=== PATIENT | female | born 1945 | race Caucasian/White ===

== ENCOUNTER → 2017-11-06 | Outpatient (CLI) | payer MEDICARE | END | disposition home or self-care (01) | LOC: KCIC CT 14:21 | DX: S00.12XD Contusion of left eyelid and periocular area, subsequent encounter (principal); E78.00 Pure hypercholesterolemia, unspecified; G93.89 Other specified disorders of brain; Z91.81 History of falling; X58.XXXD Exposure to other specified factors, subsequent encounter | CPT/HCPCS: 70450 ==

== ENCOUNTER → 2018-03-12 | Outpatient (CLI) | payer MEDICARE, OTHER ==
--- NOTE | 2018-03-12 15:10 | KCIC ---
Examination: CHEST PA LATERAL History: Cough for 2 days Comparison/Correlation: 12/19/2010 two-view chest x-ray report Findings: PA and lateral views of the chest were obtained. Rods and pedicle screws are present bilaterally involving the cervical spine. Heart size and pulmonary vasculature are normal. Pulmonary hyperinflation is present. No infiltrate or effusion. Dextroconvex scoliosis of the thoracal lumbar spine is severe. Subchondral sclerosis involves the right femoral head. Impression: COPD. No infiltrate. Electronically signed by: Simeon Rush MD (03/12/2018 3:06 PM) [id number]
== END | disposition home or self-care (01) ==
LOC: KCIC 14:14
PROVIDERS: ATTEND Nurse Practitioner Family
DX: J44.9 Chronic obstructive pulmonary disease, unspecified (principal); M41.85 Other forms of scoliosis, thoracolumbar region
CPT/HCPCS: 71046

== ENCOUNTER 2018-04-22 14:35 | Emergency (ER) | payer MEDICARE, OTHER ==
[~2018-04-22] VITALS: Ht 157.5 cm; Wt 47.6 kg
--- NOTE | 2018-04-22 15:01 | PHYS DOC ---
Adult General Chief Complaint Chief Complaint: OTHER COMPLAINTS HPI HPI Patient is a 73 year old female who presents with rectal prolapse. The patient was seen earlier at her physician's office and was diagnosed with a rectal prolapse. According to the patient's daughter who is present at the bedside, the physicians attempted to reduce the rectal prolapse without success. She was subsequently brought to the emergency department. The daughter does give a history of chronic constipation. She states the patient pushes very hard every time she has a bowel movement. She has been treated with multiple bowel softening agents and laxatives but frequently has subsequent explosive diarrhea. The daughter expresses some frustration that the patient has been unable to get on a healthy normal bowel regimen. She has, however, never had prior history of rectal prolapse in the past. Review of Systems Review of Systems Constitutional: Denies fever or chills Eyes: Denies change in visual acuity HENT: Denies nasal congestion Respiratory: Denies cough, + PMH of COPD Cardiovascular: No additional information not addressed in HPI GI: Denies abdominal pain, nausea, vomiting : Denies dysuria Musculoskeletal: Denies back pain Integument: Denies rash or skin lesions Neurologic: Denies headache, Endocrine: Denies polyuria All other systems were reviewed and found to be within normal limits, except as documented in this note. Current Medications Current Medications Current Medications Medications (Trade) Dose Ordered Sig/Rolanda Start Time Stop Time Status Last Admin Dose Admin Fentanyl Citrate (Fentanyl 2ml Vial) 25 mcg 1X ONCE 04/22/18 15:30 04/22/18 15:31 DC 04/22/18 15:27 25 MCG Olanzapine (ZyPREXA ZYDIS) 5 mg 1X ONCE 04/22/18 15:15 04/22/18 15:16 DC 04/22/18 15:14 5 MG Sodium Chloride 500 ml @ 500 mls/hr 1X ONCE 04/22/18 16:00 04/22/18 16:59 DC 04/22/18 16:25 500 MLS/HR Allergies Allergies Allergies Coded Allergies Type Severity Reaction Last Updated Verified Penicillins Allergy Intermediate 04/22/18 Yes codeine Allergy Intermediate 04/22/18 Yes Physical Exam Physical Exam Constitutional: Well developed, well nourished, no acute distress, non-toxic appearance, very anxious with some confusion that is baseline. HENT: Normocephalic, atraumatic, bilateral external ears normal, oropharynx moist Eyes: PERRLA, EOMI Neck: Normal range of motion, no tenderness, supple Cardiovascular:Heart rate regular rhythm Lungs & Thorax: Bilateral breath sounds for this patient. few scattered wheezes but good air movement Abdomen: Bowel sounds normal, soft, no tenderness, no masses, no pulsatile masses. Skin: Warm, dry, no erythema Back: No tenderness Extremities: No tenderness, no cyanosis, no clubbing, ROM intact, no edema Neurologic: Alert and oriented X 3 Psychologic: Affect normal Current Patient Data Vital Signs Vital Signs Date Time Temp Pulse Resp B/P (MAP) Pulse Ox O2 Delivery O2 Flow Rate FiO2 04/22/18 15:27 22 95 Room Air 04/22/18 14:55 99.1 72 184/73 (110) 99.1 Lab Values Laboratory Tests Test 04/22/18 15:20 04/22/18 15:38 White Blood Count 8.4 x10^3/uL (4.0-11.0) Red Blood Count 2.97 x10^6/uL (3.50-5.40) L Hemoglobin 9.7 g/dL (12.0-15.5) L Hematocrit 28.3 % (36.0-47.0) L Mean Corpuscular Volume 95 fL (79-100) Mean Corpuscular Hemoglobin 33 pg (25-35) Mean Corpuscular Hemoglobin Concent 34 g/dL (31-37) Red Cell Distribution Width 12.8 % (11.5-14.5) Platelet Count 291 x10^3/uL (140-400) Neutrophils (%) (Auto) 61 % (31-73) Lymphocytes (%) (Auto) 24 % (24-48) Monocytes (%) (Auto) 9 % (0-9) Eosinophils (%) (Auto) 6 % (0-3) H Basophils (%) (Auto) 1 % (0-3) Neutrophils # (Auto) 5.1 x10^3uL (1.8-7.7) Lymphocytes # (Auto) 2.0 x10^3/uL (1.0-4.8) Monocytes # (Auto) 0.8 x10^3/uL (0.0-1.1) Eosinophils # (Auto) 0.5 x10^3/uL (0.0-0.7) Basophils # (Auto) 0.1 x10^3/uL (0.0-0.2) Sodium Level 137 mmol/L (136-145) Potassium Level 4.8 mmol/L (3.5-5.1) Chloride Level 100 mmol/L (98-107) Carbon Dioxide Level 30 mmol/L (21-32) Anion Gap 7 (6-14) Blood Urea Nitrogen 18 mg/dL (7-20) Creatinine 1.2 mg/dL (0.6-1.0) H Estimated GFR (Cockcroft-Gault) 43.8 Glucose Level 73 mg/dL (70-99) Calcium Level 8.8 mg/dL (8.5-10.1) Urine Collection Type U cath Urine Color Yellow Urine Clarity Clear Urine pH 5.5 Urine Specific [place] 1.020 Urine Protein Negative mg/dL (NEG-TRACE) Urine Glucose (UA) Negative mg/dL (NEG) Urine Ketones (Stick) Negative mg/dL (NEG) Urine Blood Negative (NEG) Urine Nitrite Negative (NEG) Urine Bilirubin Negative (NEG) Urine Urobilinogen Dipstick 0.2 mg/dL (0.2 mg/dL) Urine Leukocyte Esterase Negative (NEG) Urine RBC 0 /HPF (0-2) Urine WBC Occ /HPF (0-4) Urine Renal Epithelial Cells Occ /LPF Urine Bacteria 0 /HPF (0-FEW) Urine Mucus Mod /LPF Laboratory Tests 04/22/18 15:20 Laboratory Tests 04/22/18 15:20 EKG EKG [] Radiology/Procedures Radiology/Procedures FINDINGS: Lack of intravenous contrast limits evaluation of solid organs, vasculature, and lymph nodes. Streak artifact from the patient's arms also limits evaluation. Lower chest: Linear opacities are seen in the lung bases likely subsegmental atelectasis/scarring. No lobar consolidation. No pleural effusion. Abdomen and Pelvis: No definite liver lesion is seen. Spleen is unremarkable. Gallbladder is unremarkable. No biliary ductal dilatation. Pancreas is grossly unremarkable for noncontrast exam. Adrenal glands are normal. No focal renal lesion. No hydronephrosis. No renal tract calculus. Large right colonic stool content is seen throughout the colon. This is most prominent in the ascending colon. The appendix is not seen. No small or large bowel dilatation to suggest bowel obstruction. Fluid-filled loops of small bowel are seen in the pelvis. The bladder is moderately distended. No abdominal or pelvic ascites. Within the constraints of this noncontrast exam no definite abdominal or pelvic lymphadenopathy is seen. Atherosclerotic calcifications of aorta are seen. Bones: Degenerative changes of the spine are seen most prominent in the lower lumbar spine. No definite aggressive osseous lesion is identified. Anterolisthesis of L5 on S1 is noted. IMPRESSION: 1. No evidence of bowel obstruction. 2. Large volume colonic stool content most prominent in the ascending colon. 3. No abdominal or pelvic ascites. Course & Med Decision Making Course & Med Decision Making Pertinent Labs and Imaging studies reviewed. (See chart for details) Patient is evaluated immediately on arrival to her room. Rectal exam is immediately performed. There is no rectal prolapse currently. Digital rectal exam is performed with normal anatomy at least to palpation. The patient then stated she needed to have a large bowel movement. She was placed on a bedpan and immediately prolapse her rectum again. 15:25: I discussed this patient with the on-call general surgeon, Dr. Powers. Today is the first time the patient has a very had rectal prolapse. There is no acute surgical intervention indicated in this setting. Possible surgical options in the future could include diverting colostomy but the patient is a poor candidate for surgery. Goal of care is to relieve her constipation symptoms as much as possible although some of her symptoms are secondary to her dementia. So the goal becomes to improve her dementia symptoms. In the ER, the patient is given Zydis 5 mg ODT. IV is placed and 25 mcg of fentanyl are ordered. Will reduce prolapse after pain meds given. Basic labs. Will also check straight cath UA to ensure she is not bearing down from a urinary cause. 17:40: Urinalysis was not infected. CT of the abdomen pelvis did not reveal acute findings. During the ED course, the patient had additional episodes where her rectum prolapsed but it was easy to reduce. The tissue was beefy red and did not appear ischemic or necrotic. I the end of the ER course, the patient's daughter had been shown how to reduce the prolapse. There was no acute indication for admission. Specific constipation instructions were drawn up. She was advised to give high-dose Colace twice daily. Following that if there is no relief at 48 hours, she will add senna. Following that if there is no relief she will add MiraLAX. I also described to the patient that there are opioid- induced constipation medications now which her primary care physician could prescribe. All her questions were answered prior to discharge. The patient's daughter was agreeable to the plan of care. She was advised to return immediately for any signs of ischemia or necrotic tissue. These were described. Follow-up with primary care physician and also with colorectal surgery at to establish care. Dragon Disclaimer Dragon Disclaimer This electronic medical record was generated, in whole or in part, using a voice recognition dictation system. Departure Departure Referrals: MAGDA ARZOLA (PCP) Scripts Polyethylene Glycol 3350 (MIRALAX) 119 Gm Powder 17 GM PO DAILY, #527 GM Prov: MARIELOS FERMIN DO 04/22/18 Sennosides (SENNA) 8.6 Mg Tablet 8.6 MG PO BID for constipation, #60 TAB 1 Refill Prov: MARIELOS FERMIN DO 04/22/18 Docusate Sodium (DOCUSATE SODIUM) 250 Mg Capsule 250 MG PO BID, #60 CAP 1 Refill Prov: MARIELOS FERMIN DO 04/22/18 Olanzapine (ZYPREXA ZYDIS) 5 Mg Tab.rapdis 5 MG PO UD, #30 TAB Give 1 or 2 dissolving tabs daily as needed for agitation. Don't exceed more than 4 tablets total per 24 hours. Prov: MARIELOS FERMIN DO 04/22/18 MARIELOS FERMIN DO Apr 22, 2018 15:01
[2018-04-22 15:30] LABS: BASO # 0.1 x10^3/uL (0.0-0.2); BASO % 1 % (0-3); EOS # 0.5 x10^3/uL (0.0-0.7); EOS % 6 % (0-3); HEMATOCRIT 28.3 % (36.0-47.0); HEMOGLOBIN 9.7 g/dL (12.0-15.5); LYMPH % 24 % (24-48); MEAN CORPUSCULAR HEMOGLOBIN 33 pg (25-35); MEAN CORPUSCULAR HGB CONC 34 g/dL (31-37); MEAN CORPUSCULAR VOLUME 95 fL (79-100); MONO # 0.8 x10^3/uL (0.0-1.1); MONO % 9 % (0-9); NEUT # 5.1 x10^3uL (1.8-7.7); NEUT % 61 % (31-73); PLATELET COUNT 291 x10^3/uL (140-400); RED BLOOD COUNT 2.97 x10^6/uL (3.50-5.40); RED CELL DISTRIBUTION WIDTH 12.8 % (11.5-14.5); WHITE BLOOD COUNT 8.4 x10^3/uL (4.0-11.0)
[2018-04-22] MEDS ORDERED: fentaNYL PF VIAL 100 MCG/2 ML VIAL IV ONE (15:30)
[2018-04-22 15:39] LABS: CALCIUM 8.8 mg/dL (8.5-10.1); CREATININE 1.2 mg/dL (0.6-1.0); GFR 43.8; POTASSIUM 4.8 mmol/L (3.5-5.1)
[2018-04-22] MEDS ORDERED: IV NORMAL SALINE 500ML BAG 500 ML IV ONE (16:00)
[2018-04-22 16:39] LABS: BILIRUBIN,URINE NEGATIVE (NEG); CLARITY,URINE CLEAR; COLOR,URINE YELLOW; NITRITE,URINE NEGATIVE (NEG); PH,URINE 5.5; PROTEIN,URINE NEGATIVE (NEG-TRACE); UROBILINOGEN,URINE 0.2 mg/dL (0.2 mg/dL)
--- NOTE | 2018-04-22 16:46 | RAD ---
EXAM: CT Abdomen and Pelvis without IV contrast CLINICAL HISTORY: lower abd pain rectal prolapse s/p reduction COMPARISON: none TECHNIQUE: Helical CT of the abdomen and pelvis without intravenous contrast. Axial, coronal and sagittal reformatted images were generated. PQRS compliance statement - One or more of the following individualized dose reduction techniques were utilized for this study: 1. Automated exposure control 2. Adjustment of the mA and/or kV according to patient size 3. Use of iterative reconstruction technique FINDINGS: Lack of intravenous contrast limits evaluation of solid organs, vasculature, and lymph nodes. Streak artifact from the patient's arms also limits evaluation. Lower chest: Linear opacities are seen in the lung bases likely subsegmental atelectasis/scarring. No lobar consolidation. No pleural effusion. Abdomen and Pelvis: No definite liver lesion is seen. Spleen is unremarkable. Gallbladder is unremarkable. No biliary ductal dilatation. Pancreas is grossly unremarkable for noncontrast exam. Adrenal glands are normal. No focal renal lesion. No hydronephrosis. No renal tract calculus. Large right colonic stool content is seen throughout the colon. This is most prominent in the ascending colon. The appendix is not seen. No small or large bowel dilatation to suggest bowel obstruction. Fluid-filled loops of small bowel are seen in the pelvis. The bladder is moderately distended. No abdominal or pelvic ascites. Within the constraints of this noncontrast exam no definite abdominal or pelvic lymphadenopathy is seen. Atherosclerotic calcifications of aorta are seen. Bones: Degenerative changes of the spine are seen most prominent in the lower lumbar spine. No definite aggressive osseous lesion is identified. Anterolisthesis of L5 on S1 is noted. IMPRESSION: 1. No evidence of bowel obstruction. 2. Large volume colonic stool content most prominent in the ascending colon. 3. No abdominal or pelvic ascites. Electronically signed by: Luis E Pearce MD (04/22/2018 4:43 PM) [facility]
[2018-04-22 16:48] LABS: BACTERIA,URINE 0 /HPF (0-FEW); RBC,URINE 0 /HPF (0-2); WBC,URINE OCC /HPF (0-4)
[2018-04-22 16:50] VITALS: BP 130/62
[2018-04-22] MEDS ORDERED: OLAN5TAB5 PO (17:21)
[2018-04-22] MEDS ORDERED: SENN-80 PO (17:21)
[2018-04-22] MEDS ORDERED: POLY119P4 PO (17:21)
[2018-04-22] MEDS ORDERED: DOCU250C8 PO (17:21)
== END 2018-04-22 17:45 | disposition home or self-care (01) ==
LOC: ER 14:35
DX: K62.3 Rectal prolapse (principal); R19.7 Diarrhea, unspecified; J44.9 Chronic obstructive pulmonary disease, unspecified; Z88.0 Allergy status to penicillin; Z88.5 Allergy status to narcotic agent
CPT/HCPCS: 36415; 74176; 80048; 81001; 85025; 96361; 96374; 99285; J3010; J7040

== ENCOUNTER 2018-06-07 11:26 | Emergency (ER) | payer MEDICARE, OTHER ==
[~2018-06-07] VITALS: Ht 165.1 cm; Wt 47.6 kg
[~2018-06-07 11:26] MED LIST: DOCU250C8 PO; OLAN5TAB5 PO; POLY119P4 PO; SENN-80 PO
--- NOTE | 2018-06-07 11:47 | PHYS DOC ---
Past Medical History Past Medical History: Arthritis, COPD, Dementia Past Surgical History: Cervical Fusion Alcohol Use: None Drug Use: None Adult General Chief Complaint Chief Complaint: OTHER COMPLAINTS HPI HPI 73-year-old female with multiple medical problems including dementia and chronic rectal prolapse presents secondary to recurrent problematic rectal prolapse. The patient's daughter, her caregiver, states that she puts her rectum back in several times daily. She's noticed some blood recently. She's been in the hospital recently secondary to this problem. She's looking for definitive treatment. She denies any pain at this time. The daughter states that she is very anxious in regards to the rectal prolapse and is constantly pushing feeling like she needs to have a bowel movement.[] Review of Systems Review of Systems Constitutional: Denies fever or chills [] Eyes: Denies change in visual acuity, redness, or eye pain [] HENT: Denies nasal congestion or sore throat [] Respiratory: Denies cough or shortness of breath [] Cardiovascular: No additional information not addressed in HPI [] GI: Per history of present illness[] : Denies dysuria or hematuria [] Musculoskeletal: Denies back pain or joint pain [] Integument: Denies rash or skin lesions [] Neurologic: Denies headache, focal weakness or sensory changes [] Endocrine: Denies polyuria or polydipsia [] All other systems were reviewed and found to be within normal limits, except as documented in this note. Current Medications Current Medications Current Medications Medications (Trade) Dose Ordered Sig/Rolanda Start Time Stop Time Status Last Admin Dose Admin Lorazepam (Ativan) 1 mg 1X ONCE 06/07/18 12:00 06/07/18 12:01 DC 06/07/18 12:24 1 MG Allergies Allergies Allergies Coded Allergies Type Severity Reaction Last Updated Verified Penicillins Allergy Intermediate 04/22/18 Yes codeine Allergy Intermediate 04/22/18 Yes Physical Exam Physical Exam Constitutional: Well developed, well nourished, no acute distress, non-toxic appearance. [] HENT: Normocephalic, atraumatic, bilateral external ears normal, oropharynx moist, no oral exudates, nose normal. [] Eyes: PERRLA, EOMI, conjunctiva normal, no discharge. [] Neck: Normal range of motion, no tenderness, supple, no stridor. [] Cardiovascular:Heart rate regular rhythm, no murmur [] Lungs & Thorax: Bilateral breath sounds clear to auscultation [] Abdomen: Bowel sounds normal, soft, no tenderness, no masses, no pulsatile masses, the rectum is not prolapsed at this time. [] Skin: Warm, dry, no erythema, no rash. [] Back: No tenderness, no CVA tenderness. [] Extremities: No tenderness, no cyanosis, no clubbing, ROM intact, no edema. [] Neurologic: Alert and oriented X 3, normal motor function, normal sensory function, no focal deficits noted. [] Psychologic: Affect normal, judgement normal, mood normal. [] EKG EKG [] Radiology/Procedures Radiology/Procedures [] Course & Med Decision Making Course & Med Decision Making Pertinent Labs and Imaging studies reviewed. (See chart for details) [ED course: Evaluation reveals a 73-year-old female with a benign exam today. Her colon was not prolapsed. I spoke with Dr. Spangler our general surgeon who made recommendation that she follow up with Dr. Spenser Rosas who is a colorectal specialist. I gave the patient all the information about how to get hold of Dr. Rosas and that their office reopened on 09 June. I will also provide the patient with very low dose alprazolam to take over the next couple days to keep her anxiety level down.] Dragon Disclaimer Dragon Disclaimer This electronic medical record was generated, in whole or in part, using a voice recognition dictation system. Departure Departure Impression: Primary Impression: Rectal prolapse Additional Impression: Anxiety about health Disposition: 01 HOME, SELF-CARE Condition: STABLE Referrals: MAGDA ARZOLA (PCP) Patient Instructions: Prolapse Additional Instructions: Call Dr. Spenser Rosas at [phone] on Thursday morning at 8 AM to arrange outpatient follow-up Scripts Alprazolam (ALPRAZOLAM) 0.25 Mg Tablet 0.25 MG PO PRN Q6HRS PRN for ANXIETY / AGITATION, #20 TAB 0 Refills Prov: BRENTON RENO DO 06/07/18 Problem Qualifiers BRENTON RENO DO Jun 07, 2018 11:47
[2018-06-07 12:43] LABS: BASO # 0.1 x10^3/uL (0.0-0.2); BASO % 1 % (0-3); EOS # 0.2 x10^3/uL (0.0-0.7); EOS % 4 % (0-3); HEMATOCRIT 30.7 % (36.0-47.0); HEMOGLOBIN 10.8 g/dL (12.0-15.5); LYMPH # 1.5 x10^3/uL (1.0-4.8); LYMPH % 24 % (24-48); MEAN CORPUSCULAR HEMOGLOBIN 33 pg (25-35); MEAN CORPUSCULAR HGB CONC 35 g/dL (31-37); MEAN CORPUSCULAR VOLUME 95 fL (79-100); MONO # 0.6 x10^3/uL (0.0-1.1); MONO % 9 % (0-9); NEUT # 3.9 x10^3uL (1.8-7.7); NEUT % 62 % (31-73); PLATELET COUNT 300 x10^3/uL (140-400); RED BLOOD COUNT 3.23 x10^6/uL (3.50-5.40); RED CELL DISTRIBUTION WIDTH 13.3 % (11.5-14.5); WHITE BLOOD COUNT 6.3 x10^3/uL (4.0-11.0)
[2018-06-07] MEDS ORDERED: ALPR0.254 PO (12:43)
[2018-06-07 12:54] LABS: CALCIUM 9.1 mg/dL (8.5-10.1); CREATININE 1.3 mg/dL (0.6-1.0); GFR 39.9; POTASSIUM 4.6 mmol/L (3.5-5.1)
[2018-06-07 12:59] LABS: ALBUMIN 3.5 g/dL (3.4-5.0); ALBUMIN/GLOBULIN RATIO 0.9 (1.0-1.7); TOTAL BILIRUBIN 0.2 mg/dL (0.2-1.0); TOTAL PROTEIN 7.5 g/dL (6.4-8.2)
[2018-06-07 13:15] VITALS: BP 151/74
== END 2018-06-07 13:14 | disposition home or self-care (01) ==
LOC: ER 11:26
DX: K62.3 Rectal prolapse (principal); F41.9 Anxiety disorder, unspecified; J44.9 Chronic obstructive pulmonary disease, unspecified; F03.90 Unspecified dementia, unspecified severity, without behavioral disturbance, psychotic disturbance, mood disturbance, and anxiety; Z88.0 Allergy status to penicillin; Z88.8 Allergy status to other drugs, medicaments and biological substances
CPT/HCPCS: 36415; 80053; 85025; 96374; 99283; J2060

== ENCOUNTER 2020-02-02 08:08 | Inpatient (IN) | payer MEDICAID, MEDICARE, OTHER ==
[~2020-02-02] VITALS: Ht 170.2 cm; Wt 51.3 kg
[~2020-02-02 08:08] MED LIST changes: +ALPR0.254 PO; -OLAN5TAB5 PO; +OLAN5TAB99 PO; +SENN-182 PO; -SENN-80 PO
[2020-02-02] MEDS ORDERED: IV NORMAL SALINE 1000ML BAG 1,000 ML IV ONE (08:45)
[2020-02-02] MEDS ORDERED: fentaNYL PF VIAL 100 MCG/2 ML VIAL IVP ONE ×2 (08:45→10:15)
--- NOTE | 2020-02-02 08:54 | PHYS DOC ---
Past Medical History Past Medical History: Dementia Additional Past Medical Histor: chronic pain Past Medical History Limited secondary to dementia Past Surgical History: Cervical Fusion Additional Past Surgical Histo: "bar in spine" Past Surgical History Limited secondary to dementia Smoking Status: Former Smoker Alcohol Use: Rarely Drug Use: None Social History Limited secondary to dementia General Adult EDM: Chief Complaint: MECHANICAL FALL HPI: HPI: Patient is a 75-year-old female who presents to the ED with complaints of right hip pain after sustaining a fall. Patient has a history of moderate to severe dementia and is accompanied by her daughter who is providing history. The patient states "she fell after chasing her cats out the door". Patient complains of a severe pain in the right hip described as a deep and rated at a 1 1 out of 10 on the pain scale. Patient denies any loss of consciousness or head trauma. Patient denies chest pain, abdominal pain, headache, neck pain, nausea, or vomiting. Patient has had previous cervical spinal surgery, left chronic shoulder pain, and ongoing rectal prolapse. History of present illness limited secondary to dementia. Review of Systems: Review of Systems: Constitutional: Denies fever or chills HENT: Denies epistaxis GI: Denies vomiting Musculoskeletal: Endorses joint pain Integument: Denies laceration; reports some facial abrasions Neurologic: Denies headache Review of systems is limited by patient's dementia. Allergies: Allergies: Allergies Coded Allergies Type Severity Reaction Last Updated Verified Penicillins Allergy Intermediate 04/22/18 Yes codeine Allergy Intermediate 04/22/18 Yes Physical Exam: PE: Constitutional: Patient appears frail, moderately distressed, responding to questions appropriately HENT: Normocephalic, atraumatic, widespread excoriations on face and scalp Eyes: Pupils 3 mm bilaterally and reactive to light consensual and direct, EOMI, conjunctiva normal, no discharge Neck: Limited range of motion, no tender to palpation of midline C-spine or paraspinal musculature, cervical hardware palpable to palpation Lungs & Thorax: Equal chest rise and fall bilaterally, no signs of respiratory distress Abdomen: Soft, no tenderness Skin: Warm, dry, no erythema, no rash Back: No tenderness to palpation of midline thoracic or lumbar spine Extremities: Right hip is tender to deep and superficial palpation, maximal tenderness approximately at right greater trochanteric area, right lower extremity range of motion is limited by pain, foot dorsiflexion and plantar flexion muscle strength 4 out of 5 bilaterally. Dorsalis pedis pulse +2 bilaterally. Right posterior tibial pulse nonpalpable. Neurologic: Alert but disoriented, normal motor function, normal sensory function, evaluation of focal deficits limited by pain in the right hip Psychologic: Affect normal, memory impairment EKG: EK02/02/2020 at 08:18:12 normal rate 78 BPM, normal sinus rhythm, QRS 96 ms, QT 410 ms, QTc 471 ms, no ST or T wave abnormalities. Radiology/Procedures: Radiology/Procedures: PROCEDURE: PORTABLE CHEST 1V INDICATION: Reason: weakness / Spl. Instructions: / History: COMPARISON: March 12, 2018 FINDINGS: Single view of chest obtained. Cardiac silhouette is similar to prior with calcific atherosclerosis. Hyperexpanded lungs with coarsened lung markings and mild interstitial prominence. Dysmorphic changes the left proximal humerus. Degenerative changes of the spine. IMPRESSION: * Hyperexpanded lungs with mild interstitial prominence bilaterally. Would correlate with history of emphysema since emphysematous changes can have this radiographic appearance. A superimposed mild edema is not excluded given the mild interstitial prominence. Electronically signed by: Mundo Matta MD (02/02/2020 10:05 AM) [id number] PROCEDURE: CT HEAD AND CERVICAL SPINE WO Date: 02/02/2020 8:45 AM Clinical Indication: weakness, pain s/p fall Comparison: 11/25/2017. Technique: 5 mm axial tomographic images were obtained of the head without contrast. These were viewed on brain and bone windows. Noncontrast CT of the cervical spine was performed. Sagittal and coronal reformats were performed and evaluated. One or more of the following dose reduction techniques were utilized: Automated exposure control (AEC), Adjustment of mA and/or kV according to patient size, Use of iterative reconstruction technique such as ASiR, CT scan done according to ALARA and image gently/image wisely HEAD FINDINGS: Mild generalized cerebral and cerebellar volume loss. Mild nonspecific periventricular hypoattenuation, most commonly seen with chronic small vessel ischemic disease. No intra- or extra-axial mass or fluid collection. No acute hemorrhage. The ventricles are normal in size, shape, and morphology. The jean-white matter junction is normal. The basilar cisterns are patent. The visualized paranasal sinuses are normal. The visualized portions of the orbits and globes are normal. The mastoid air cells are clear. No aggressive osseous lesion or fracture. CERVICAL SPINE FINDINGS: Straightening of the cervical lordosis. No acute fracture. Postsurgical changes of posterior decompression and instrumentation at C2-C6. Surgical hardware is intact. 2 mm. Screw lucency around the right C6 screw. Moderate to severe multilevel degenerative disc space height loss. Multilevel mild spinal canal stenosis secondary to disc protrusions and marginal osteophytes. Multilevel moderate neuroforaminal narrowing secondary to uncovertebral arthrosis. Multilevel moderate facet arthrosis. The thyroid gland is normal. No cervical lymphadenopathy. Bilateral carotid atherosclerosis. Aberrant origin of the right subclavian artery. Interlobular emphysema. IMPRESSION: 1. No acute intracranial process. 2. No acute cervical spine fracture. 3. Postsurgical changes of C2-C6 posterior decompression and instrumentation. Mild periscrew lucency at C6 on the right, which may represent hardware loosening. Electronically signed by: Raf Brandon MD (02/02/2020 9:42 AM) [id number] PROCEDURE: HIP RIGHT 2V WITH PELVIS EXAM: AP pelvis, AP and lateral views right hip DATE: 02/02/2020 12:00 AM INDICATION: Reason: FALL INJURY PAIN ON RIGHT HIP / Spl. Instructions: / History: COMPARISON: No Prior FINDINGS/ IMPRESSION: Right hip intertrochanteric fracture is seen in mild varus angulation and mild proximal migration of the femoral shaft component relative to the neck component. Mild bilateral hip joint degenerative changes are seen. Lower lumbar spine degenerative changes are noted. Electronically signed by: Luis E Pearce MD (02/02/2020 10:12 AM) [id number] Course & Med Decision Making: Course & Med Decision Making Patient is a 75-year-old female presenting to the ED with right hip pain after an unwitnessed fall during the morning of 02/02/2020. Patient has Alzheimer's dementia and is accompanied by her daughter who is her admitted attorneys providing collateral history. Patient denies loss of consciousness or head trauma. No physical exam findings suggesting cervical or head trauma are present. CT of head and neck and chest x-ray shows no acute process. Physical exam of the patient's lower extremities show tenderness to palpation of the right hip, no sensory loss or motor weakness appreciated. Imaging of the hip shows a right intertrochanteric hip fracture. ECG and troponin are normal. A normal UA and an absence of significant lab value abnormality on the BC and BMP make the etiology of fall most likely mechanical. Patient requiring admission for further evaluation and treatment. Discussed with Dr. Joseph (hospitalist) who is in agreement with admission. Discussed case with Dr. Martin (orthopedics) who is in agreement with consultation. COVID testing performed given need for surgical treatment. Discussed findings and plan with patient and family, who acknowledge understanding and agreement. Dragon Disclaimer: Dragon Disclaimer: This electronic medical record was generated, in whole or in part, using a voice recognition dictation system. Departure Departure Impression: Primary Impression: Intertrochanteric fracture Qualified Codes: S72.141A - Displaced intertrochanteric fracture of right femur, initial encounter for closed fracture Disposition: ADMITTED INPATIENT Admitting Physician: HEAVENLY (Opal) Condition: STABLE Referrals: UNKNOWN PCP NAME (PCP) Scripts Polyethylene Glycol 3350 (POLYETHYLENE GLYCOL 3350) 17 Gm Powd.pack 17 GM PO PRN DAILY PRN for CONSTIPATION for 30 Days, #30 PKT Prov: JACEY MIX MD 02/06/20 Cholecalciferol (Vitamin D3) (Vitamin D3) 25 Mcg Tablet 1000 UNIT PO DAILY for Vitamin d insufficiency for 30 Days, #30 TAB Prov: JACEY MIX MD 02/06/20 Oxycodone/Apap 5-325 (PERCOCET 5-325 MG TABLET ) 1 Each Tablet 1 TAB PO PRN Q6HRS PRN for MODERATE PAIN for 6 Days, #24 TAB Prov: JACEY MIX MD 02/06/20 Enoxaparin Sodium (ENOXAPARIN SODIUM) 40 Mg/0.4 Ml Disp.syrin 40 MG SQ Q24H for DVT prophylaxis for 30 Days, #30 DIS.SYR Prov: JACEY MIX MD 02/06/20 Methadone Hcl (METHADONE HCL) 5 Mg Tablet 1 TAB PO TID for pain for 30 Days, #90 TAB Prov: JACEY MIX MD 02/06/20 Justicifation of Admission Dx: Justifications for Admission: Justification of Admission Dx: Yes Comments: Intertrochateric fracture WAYNE VELA DO Feb 02, 2020 08:54
[2020-02-02 09:03] LABS: BASO # 0.1 x10^3/uL (0.0-0.2); BASO % 1 % (0-3); EOS # 0.3 x10^3/uL (0.0-0.7); EOS % 4 % (0-3); HEMATOCRIT 30.7 % (36.0-47.0); HEMOGLOBIN 10.4 g/dL (12.0-15.5); LYMPH % 14 % (24-48); MEAN CORPUSCULAR HEMOGLOBIN 31 pg (25-35); MEAN CORPUSCULAR HGB CONC 34 g/dL (31-37); MEAN CORPUSCULAR VOLUME 90 fL (79-100); MONO # 0.6 x10^3/uL (0.0-1.1); MONO % 9 % (0-9); NEUT # 5.3 x10^3/uL (1.8-7.7); NEUT % 73 % (31-73); PLATELET COUNT 414 x10^3/uL (140-400); WHITE BLOOD COUNT 7.3 x10^3/uL (4.0-11.0)
[2020-02-02 09:14] LABS: PROTHROMBIN TIME PATIENT 12.7 SEC (11.7-14.0)
[2020-02-02 09:18] LABS: CALCIUM 8.7 mg/dL (8.5-10.1); CREATININE 1.2 mg/dL (0.6-1.0); GFR 43.6; POTASSIUM 4.1 mmol/L (3.5-5.1)
[2020-02-02 09:24] LABS: ALBUMIN 3.1 g/dL (3.4-5.0); ALBUMIN/GLOBULIN RATIO 0.8 (1.0-1.7); MAGNESIUM 2.1 mg/dL (1.8-2.4); TOTAL BILIRUBIN 0.2 mg/dL (0.2-1.0)
--- NOTE | 2020-02-02 09:29 | EKG ---
[facility] [address] [place] [address] Test Date: 2020-02-02 Test Time: 08:18:12 Pat Name: JESSICA PITTMAN Department: Room: Gender: F [employer]: : 1945 Requested By: WAYNE VELA Order Number: [id number] Reading MD: Measurements Intervals [place] Rate: 78 P: 90 DE: 124 QRS: 86 QRSD: 96 T: 22 QT: 410 QTc: 471 Interpretive Statements SINUS RHYTHM NORMAL ECG RI6.02 No previous ECG available for comparison
[2020-02-02 09:34] LABS: BILIRUBIN,URINE NEGATIVE (NEG); CLARITY,URINE CLEAR; COLOR,URINE YELLOW; NITRITE,URINE NEGATIVE (NEG); PH,URINE 6.5 (<5.0-8.0); PROTEIN,URINE NEGATIVE (NEG-TRACE); UROBILINOGEN,URINE 0.2 mg/dL (0.2 mg/dL)
--- NOTE | 2020-02-02 09:45 | RAD ---
CT HEAD AND CERVICAL SPINE WO Date: 02/02/2020 8:45 AM Clinical Indication: weakness, pain s/p fall Comparison: 11/25/2017. Technique: 5 mm axial tomographic images were obtained of the head without contrast. These were viewed on brain and bone windows. Noncontrast CT of the cervical spine was performed. Sagittal and coronal reformats were performed and evaluated. One or more of the following dose reduction techniques were utilized: Automated exposure control (AEC), Adjustment of mA and/or kV according to patient size, Use of iterative reconstruction technique such as ASiR, CT scan done according to ALARA and image gently/image wisely HEAD FINDINGS: Mild generalized cerebral and cerebellar volume loss. Mild nonspecific periventricular hypoattenuation, most commonly seen with chronic small vessel ischemic disease. No intra- or extra-axial mass or fluid collection. No acute hemorrhage. The ventricles are normal in size, shape, and morphology. The jean-white matter junction is normal. The basilar cisterns are patent. The visualized paranasal sinuses are normal. The visualized portions of the orbits and globes are normal. The mastoid air cells are clear. No aggressive osseous lesion or fracture. CERVICAL SPINE FINDINGS: Straightening of the cervical lordosis. No acute fracture. Postsurgical changes of posterior decompression and instrumentation at C2-C6. Surgical hardware is intact. 2 mm. Screw lucency around the right C6 screw. Moderate to severe multilevel degenerative disc space height loss. Multilevel mild spinal canal stenosis secondary to disc protrusions and marginal osteophytes. Multilevel moderate neuroforaminal narrowing secondary to uncovertebral arthrosis. Multilevel moderate facet arthrosis. The thyroid gland is normal. No cervical lymphadenopathy. Bilateral carotid atherosclerosis. Aberrant origin of the right subclavian artery. Interlobular emphysema. IMPRESSION: 1. No acute intracranial process. 2. No acute cervical spine fracture. 3. Postsurgical changes of C2-C6 posterior decompression and instrumentation. Mild periscrew lucency at C6 on the right, which may represent hardware loosening. Electronically signed by: Raf Brandon MD (02/02/2020 9:42 AM) [id number]
[2020-02-02 09:48] LABS: BACTERIA,URINE MODERATE /HPF (0-FEW); SQUAMOUS EPITHELIAL CELL,UR OCC /LPF
[2020-02-02 09:49] LABS: AMORPHOUS SEDIMENT,UR PRESENT /HPF
--- NOTE | 2020-02-02 10:08 | RAD ---
INDICATION: Reason: weakness / Spl. Instructions: / History: COMPARISON: March 12, 2018 FINDINGS: Single view of chest obtained. Cardiac silhouette is similar to prior with calcific atherosclerosis. Hyperexpanded lungs with coarsened lung markings and mild interstitial prominence. Dysmorphic changes the left proximal humerus. Degenerative changes of the spine. IMPRESSION: * Hyperexpanded lungs with mild interstitial prominence bilaterally. Would correlate with history of emphysema since emphysematous changes can have this radiographic appearance. A superimposed mild edema is not excluded given the mild interstitial prominence. Electronically signed by: Mundo Matta MD (02/02/2020 10:05 AM) [id number]
[2020-02-02] MEDS ORDERED: ONDANSETRON PF 4 MG/2 ML VIAL. IV PRN ×2 (10:15→12:30)
--- NOTE | 2020-02-02 10:15 | RAD ---
EXAM: AP pelvis, AP and lateral views right hip DATE: 02/02/2020 12:00 AM INDICATION: Reason: FALL INJURY PAIN ON RIGHT HIP / Spl. Instructions: / History: COMPARISON: No Prior FINDINGS/ IMPRESSION: Right hip intertrochanteric fracture is seen in mild varus angulation and mild proximal migration of the femoral shaft component relative to the neck component. Mild bilateral hip joint degenerative changes are seen. Lower lumbar spine degenerative changes are noted. Electronically signed by: Luis E Pearce MD (02/02/2020 10:12 AM) [id number]
--- NOTE | 2020-02-02 11:37 | PDOC1 ---
History and Physical Date of Admission Date of Admission DATE: 02/02/20 TIME: 11:35 Identification/Chief Complaint Chief Complaint seen in ED with complaints of right hip pain after sustaining a fall. x ray c/w hip fx, mechanical fall Patient has a history of moderate to severe dementia and is accompanied by her daughter who is providing a collateral history. The patient states "she fell after chasing her cats out the door". Patient complains of a severe pain in the right hip described as a deep and rated at a 11 out of 10 on the pain scale. Patient denies any loss of consciousness or head trauma. Patient denies chest pain, abdominal pain, headache, neck pain, nausea, vomiting. Patient has had previous cervical spinal surgery, left chronic shoulder pain, and ongoing rectal prolapse. HPI is limite d by patient's dementia. daughter in ROOM IS DPOA , discussed, reviewed 10 min Past Medical History Past Medical History Past Medical History Past Medical History: Dementia Additional Past Medical Histor: chronic pain Past Surgical History: Cervical Fusion Additional Past Surgical Histo: "bar in spine" Smoking Status: Former Smoker Alcohol Use: Rarely Drug Use: None FHX COPD Pulmonary: No pertinent hx, Other (remote smoker) CENTRAL NERVOUS SYSTEM: Dementia Musculoskeletal: Osteoarthritis Renal/: No pertinent hx Dermatology: No pertinent hx Family History Family History: Chronic Bronchitis, Coronary Artery Disease Social History Smoke: Quit ALCOHOL: none Drugs: None Current Medications Current Medications Current Medications Sodium Chloride 1,000 ml @ 1,000 mls/hr 1X ONCE IV Last administered on at 09:06; Start 02/02/20 at 08:45; Stop 02/02/20 at 09:44; Status DC Fentanyl Citrate (Fentanyl 2ml Vial) 75 mcg 1X ONCE IVP Last administered on 02/02/20at 09:06; Start 02/02/20 at 08:45; Stop 02/02/20 at 08:53; Status DC Fentanyl Citrate (Fentanyl 2ml Vial) 75 mcg 1X ONCE IVP Last administered on 02/02/20at 10:23; Start 02/02/20 at 10:15; Stop 02/02/20 at 10:16; Status DC Ondansetron HCl (Zofran) 4 mg PRN Q8HRS PRN IV NAUSEA/VOMITING; Start 02/02/20 at 10:15; Stop 02/03/20 at 10:14 Fentanyl Citrate (Fentanyl 2ml Vial) 50 mcg PRN Q1HR PRN IV PAIN; Start 02/02/20 at 10:15; Stop 02/03/20 at 10:14 Active Scripts Active Alprazolam 0.25 Mg Tablet 0.25 Mg PO PRN Q6HRS PRN Miralax (Polyethylene Glycol 3350) 119 Gm Powder 17 Gm PO DAILY Senna (Sennosides) 8.6 Mg Tablet 8.6 Mg PO BID Docusate Sodium 250 Mg Capsule 250 Mg PO BID Zyprexa Zydis (Olanzapine) 5 Mg Tab.rapdis 5 Mg PO UD Give 1 or 2 dissolving tabs daily as needed for agitation. Don't exceed more than 4 tablets total per 24 hours. Allergies Allergies: Coded Allergies: Penicillins (Verified Allergy, Intermediate, 04/22/18) codeine (Verified Allergy, Intermediate, 04/22/18) ROS Review of System Review of Systems: Review of Systems: Constitutional: Denies fever or chills Eyes: Denies redness or eye pain HENT: Denies nasal congestion or sore throat Respiratory: Denies cough or shortness of breath Cardiovascular: Denies chest pain or palpitations GI: Denies abdominal pain, nausea, or vomiting : Denies dysuria or hematuria Musculoskeletal: Endorses joint pain Integument: Denies rash or skin lesions Neurologic: Denies headache, focal weakness or sensory changes 14 pt were reviewed and found to be within normal limits, except as documented in this note. Review of systems is limited by patient's dementia. General: No: Chills, Night Sweats, Fatigue, Malaise, Appetite, Other PSYCHOLOGICAL ROS: YES: Disorientation Hematological and Lymphatic: No: Bleeding Problems, Blood Clots, Blood Transfusions, Brusing, Night Sweats, Pallor, Swollen Lymph Nodes, Other Respiratory: No: Cough, Hemoptysis, Orthopnea, Pleuritic Pain, Shortness of breath, SOB with excertion, Sputum Changes, Stridor, Tachypnea, Wheezing, Other Cardiovascular: No Chest Pain, No Palpitations, No Orthopnea, No Paroxysmal Noc. Dyspnea, No Edema, No Lt Headedness, No Other Gastrointestinal: No Nausea, No Vomiting, No Abdominal Pain, No Diarrhea, No Constipation, No Melena, No Hematochezia, No Other Genitourinary: No Dysuria, No Frequency, No Incontinence, No Hematuria, No Retention, No Discharge, No Urgency, No Pain, No Flank Pain, No Other, No , No , No , No , No , No , No Musculoskeletal: Yes Gait Disturbance, Yes Joint Pain Neurological: Yes Confusion, Yes Gait Disturbance Physical Exam Physical Exam Constitutional: Patient appears frail, moderately distressed, responding to questions appropriately smiling HENT: Normocephalic, atraumatic, widespread excoriations on face and scalp Eyes: Pupils 3 mm bilaterally and reactive to light consensual and direct, EOMI, conjunctiva normal, no discharge Neck: Limited range of motion, no tender to palpation of midline C-spine or paraspinal musculature, cervical hardware palpable to palpation Lungs & Thorax: , no signs of respiratory distress Abdomen: Soft, no tenderness Skin: Warm, dry, no erythema, no rash Back: No tenderness to palpation of midline thoracic or lumbar spine Extremities: Right hip is tender to deep and superficial palpation, maximal tenderness approximately at right greater trochanteric area, right lower extremity range of motion is limited by pain, foot dorsiflexion and plantar flexion muscle strength 4 out of 5 bilaterally. Dorsalis pedis pulse +2 bilaterally. Right posterior tibial pulse nonpalpable. Neurologic: Alert, normal motor function, normal sensory function, evaluation of focal deficits limited by pain in the right hip Psychologic: Affect normal, memory impairment, short term impaired General: Alert, Cooperative HEENT: Atraumatic Lungs: Clear to auscultation Heart: RRR Breasts: Not examined Abdomen: Normal bowel sounds, Soft, No tenderness, No hepatosplenomegaly Rectal Exam: not examined PELVIC: Examination not indicated Extremities: No cyanosis, No edema Neuro: Normal speech Psych/Mental Status: Mood NL Vitals Vitals Vital Signs Date Time Temp Pulse Resp B/P (MAP) Pulse Ox O2 Delivery O2 Flow Rate FiO2 02/02/20 10:30 84 22 93 02/02/20 10:23 Room Air 02/02/20 08:21 98.7 175/87 (116) 98.7 Labs Labs Laboratory Tests Test 02/02/20 08:20 02/02/20 09:22 02/02/20 10:20 White Blood Count 7.3 x10^3/uL (4.0-11.0) Red Blood Count 3.40 x10^6/uL (3.50-5.40) Hemoglobin 10.4 g/dL (12.0-15.5) Hematocrit 30.7 % (36.0-47.0) Mean Corpuscular Volume 90 fL (79-100) Mean Corpuscular Hemoglobin 31 pg (25-35) Mean Corpuscular Hemoglobin Concent 34 g/dL (31-37) Red Cell Distribution Width 14.0 % (11.5-14.5) Platelet Count 414 x10^3/uL (140-400) Neutrophils (%) (Auto) 73 % (31-73) Lymphocytes (%) (Auto) 14 % (24-48) Monocytes (%) (Auto) 9 % (0-9) Eosinophils (%) (Auto) 4 % (0-3) Basophils (%) (Auto) 1 % (0-3) Neutrophils # (Auto) 5.3 x10^3/uL (1.8-7.7) Lymphocytes # (Auto) 1.0 x10^3/uL (1.0-4.8) Monocytes # (Auto) 0.6 x10^3/uL (0.0-1.1) Eosinophils # (Auto) 0.3 x10^3/uL (0.0-0.7) Basophils # (Auto) 0.1 x10^3/uL (0.0-0.2) Prothrombin Time 12.7 SEC (11.7-14.0) Prothromb Time International Ratio 1.0 (0.8-1.1) Activated Partial Thromboplast Time 28 SEC (24-38) Sodium Level 135 mmol/L (136-145) Potassium Level 4.1 mmol/L (3.5-5.1) Chloride Level 99 mmol/L (98-107) Carbon Dioxide Level 31 mmol/L (21-32) Anion Gap 5 (6-14) Blood Urea Nitrogen 9 mg/dL (7-20) Creatinine 1.2 mg/dL (0.6-1.0) Estimated GFR (Cockcroft-Gault) 43.6 BUN/Creatinine Ratio 8 (6-20) Glucose Level 93 mg/dL (70-99) Calcium Level 8.7 mg/dL (8.5-10.1) Magnesium Level 2.1 mg/dL (1.8-2.4) Total Bilirubin 0.2 mg/dL (0.2-1.0) Aspartate Amino Transf (AST/SGOT) 17 U/L (15-37) Alanine Aminotransferase (ALT/SGPT) 14 U/L (14-59) Alkaline Phosphatase 71 U/L (46-116) Creatine Kinase 87 U/L (26-192) Creatine Kinase MB (Mass) 1.5 ng/mL (0.0-3.6) Creatine Kinase MB Relative Index 1.7 % (0-4) Troponin I Quantitative < 0.017 ng/mL (0.000-0.055) Total Protein 7.0 g/dL (6.4-8.2) Albumin 3.1 g/dL (3.4-5.0) Albumin/Globulin Ratio 0.8 (1.0-1.7) Urine Collection Type Void Urine Color Yellow Urine Clarity Clear Urine pH 6.5 (<5.0-8.0) Urine Specific [place] 1.010 (1.000-1.030) Urine Protein Negative mg/dL (NEG-TRACE) Urine Glucose (UA) Negative mg/dL (NEG) Urine Ketones (Stick) Negative mg/dL (NEG) Urine Blood Small (NEG) Urine Nitrite Negative (NEG) Urine Bilirubin Negative (NEG) Urine Urobilinogen Dipstick 0.2 mg/dL (0.2 mg/dL) Urine Leukocyte Esterase Small (NEG) Urine RBC 1-2 /HPF (0-2) Urine WBC 5-10 /HPF (0-4) Urine Squamous Epithelial Cells Occ /LPF Urine Amorphous Sediment Present /HPF Urine Bacteria Moderate /HPF (0-FEW) SARS-CoV-2 Antigen (Rapid) Negative (NEGATIVE) Laboratory Tests Test 02/02/20 08:20 02/02/20 09:22 02/02/20 10:20 White Blood Count 7.3 x10^3/uL (4.0-11.0) Red Blood Count 3.40 x10^6/uL (3.50-5.40) Hemoglobin 10.4 g/dL (12.0-15.5) Hematocrit 30.7 % (36.0-47.0) Mean Corpuscular Volume 90 fL (79-100) Mean Corpuscular Hemoglobin 31 pg (25-35) Mean Corpuscular Hemoglobin Concent 34 g/dL (31-37) Red Cell Distribution Width 14.0 % (11.5-14.5) Platelet Count 414 x10^3/uL (140-400) Neutrophils (%) (Auto) 73 % (31-73) Lymphocytes (%) (Auto) 14 % (24-48) Monocytes (%) (Auto) 9 % (0-9) Eosinophils (%) (Auto) 4 % (0-3) Basophils (%) (Auto) 1 % (0-3) Neutrophils # (Auto) 5.3 x10^3/uL (1.8-7.7) Lymphocytes # (Auto) 1.0 x10^3/uL (1.0-4.8) Monocytes # (Auto) 0.6 x10^3/uL (0.0-1.1) Eosinophils # (Auto) 0.3 x10^3/uL (0.0-0.7) Basophils # (Auto) 0.1 x10^3/uL (0.0-0.2) Prothrombin Time 12.7 SEC (11.7-14.0) Prothromb Time International Ratio 1.0 (0.8-1.1) Activated Partial Thromboplast Time 28 SEC (24-38) Sodium Level 135 mmol/L (136-145) Potassium Level 4.1 mmol/L (3.5-5.1) Chloride Level 99 mmol/L (98-107) Carbon Dioxide Level 31 mmol/L (21-32) Anion Gap 5 (6-14) Blood Urea Nitrogen 9 mg/dL (7-20) Creatinine 1.2 mg/dL (0.6-1.0) Estimated GFR (Cockcroft-Gault) 43.6 BUN/Creatinine Ratio 8 (6-20) Glucose Level 93 mg/dL (70-99) Calcium Level 8.7 mg/dL (8.5-10.1) Magnesium Level 2.1 mg/dL (1.8-2.4) Total Bilirubin 0.2 mg/dL (0.2-1.0) Aspartate Amino Transf (AST/SGOT) 17 U/L (15-37) Alanine Aminotransferase (ALT/SGPT) 14 U/L (14-59) Alkaline Phosphatase 71 U/L (46-116) Creatine Kinase 87 U/L (26-192) Creatine Kinase MB (Mass) 1.5 ng/mL (0.0-3.6) Creatine Kinase MB Relative Index 1.7 % (0-4) Troponin I Quantitative < 0.017 ng/mL (0.000-0.055) Total Protein 7.0 g/dL (6.4-8.2) Albumin 3.1 g/dL (3.4-5.0) Albumin/Globulin Ratio 0.8 (1.0-1.7) Urine Collection Type Void Urine Color Yellow Urine Clarity Clear Urine pH 6.5 (<5.0-8.0) Urine Specific [place] 1.010 (1.000-1.030) Urine Protein Negative mg/dL (NEG-TRACE) Urine Glucose (UA) Negative mg/dL (NEG) Urine Ketones (Stick) Negative mg/dL (NEG) Urine Blood Small (NEG) Urine Nitrite Negative (NEG) Urine Bilirubin Negative (NEG) Urine Urobilinogen Dipstick 0.2 mg/dL (0.2 mg/dL) Urine Leukocyte Esterase Small (NEG) Urine RBC 1-2 /HPF (0-2) Urine WBC 5-10 /HPF (0-4) Urine Squamous Epithelial Cells Occ /LPF Urine Amorphous Sediment Present /HPF Urine Bacteria Moderate /HPF (0-FEW) SARS-CoV-2 Antigen (Rapid) Negative (NEGATIVE) Images Images INDICATION: Reason: weakness / Spl. Instructions: / History: COMPARISON: March 12, 2018 FINDINGS: Single view of chest obtained. Cardiac silhouette is similar to prior with calcific atherosclerosis. Hyperexpanded lungs with coarsened lung markings and mild interstitial prominence. Dysmorphic changes the left proximal humerus. Degenerative changes of the spine. IMPRESSION: * Hyperexpanded lungs with mild interstitial prominence bilaterally. Would correlate with history of emphysema since emphysematous changes can have this radiographic appearance. A superimposed mild edema is not excluded given the mild interstitial prominence. Electronically signed by: Sanju Roldan MD (02/02/2020 10:05 AM) [id number] DICTATED and SIGNED BY: SANJU ROLDAN MD EXAM: AP pelvis, AP and lateral views right hip DATE: 02/02/2020 12:00 AM INDICATION: Reason: FALL INJURY PAIN ON RIGHT HIP / Spl. Instructions: / History: COMPARISON: No Prior FINDINGS/ IMPRESSION: Right hip intertrochanteric fracture is seen in mild varus angulation and mild proximal migration of the femoral shaft component relative to the neck component. Mild bilateral hip joint degenerative changes are seen. Lower lumbar spine degenerative changes are noted. Electronically signed by: Luis E Pearce MD (02/02/2020 10:12 AM) [id number] VTE Prophylaxis Ordered VTE Prophylaxis Devices: Yes VTE Pharmacological Prophylaxi: Yes Assessment/Plan Assessment/Plan IMPRESSION: Mechanical fall acute Right hip intertrochanteric fracture is seen in mild varus angulation and mild proximal migration of the femoral shaft component relative to the neck component. OSTEOPOROSIS DEMENTIA Remote tobacco abuse history of emphysema on cxr emphysematous changes can have this radiographic appearance. A superimposed mild edema is not excluded given the mild interstitial prominence. normocytic anemia plan admit ortho consult stacia salcedo DNR Daughter is DPOA 10 MIN REVIEW DVT PROPHYLAXIS, lovenox iv pain control prn NPO Justifications for Admission Other Justification ELISABETH VARGAS MD Feb 02, 2020 11:36
[2020-02-02] MEDS ORDERED: MAG HYDROX/ALUMINUM HYD/SIMETH 30 ML ORAL.SUSP PO PRN (12:30)
[2020-02-02] MEDS ORDERED: DOCUSATE SODIUM 100 MG CAPSULE. PO PRN (12:30)
[2020-02-02] MEDS ORDERED: ACETAMINOPHEN 650 MG SUPP.RECT. PR PRN (12:30)
[2020-02-02] MEDS ORDERED: 0.9 % SODIUM CHLORIDE 10 ML DISP.SYRIN. IV PRN (12:30)
[2020-02-02] MEDS ORDERED: cloNIDine HCL 0.1 MG TABLET PO PRN (12:30)
[2020-02-02] MEDS ORDERED: SODIUM PHOSPHATES 19/7GM 133 ML ENEMA. PR PRN (12:30)
[2020-02-02] MEDS ORDERED: guaiFENesin ORAL 200 MG/10 ML LIQUID. PO PRN (12:30)
[2020-02-02] MEDS: fentaNYL PF VIAL 100 MCG/2 ML VIAL IV PRN ×3 (13:55→19:53)
[2020-02-02] MEDS: IPRATRPIUM/ALBUTEROL 0.5/2.5MG 3 ML NEBU. NEB SCH ×3 (14:00→20:47)
[2020-02-02] MEDS: LORazepam 0.5 MG TABLET PO PRN ×3 (14:08→19:53)
[2020-02-02] MEDS: IV NORMAL SALINE 1000ML BAG 1,000 ML IV SCH ×2 (14:25→19:57)
--- NOTE | 2020-02-02 14:34 | PDOC2 ---
CONSULT Date of Consult Date of Consult DATE: 02/02/20 TIME: 14:29 Reason for Consult Reason for Consult: Right hip fracture Identification/Chief Complaint Chief Complaint Right hip pain after a fall Source Source: Caregiver, Chart review, Patient History of Present Illness Reason for Visit: 75 year old with dementia and quite a few medical problems including history of COPD, chronic pain, cervical spine surgery, stenosis, frequent falls. She has right hip pain after sustaining a fall. X-rays in the ER show an intertrochanteric displaced fracture, consistent with a fall. Patient has a history of moderate to severe dementia and was accompanied by her daughter who provided a collateral history. The patient states "she fell after chasing her cats out the door". Patient complains of a severe pain in the right hip described as a deep and rated at a 11 out of 10 on the pain scale. Patient denies any loss of consciousness or head trauma. Patient denies chest pain, abdominal pain, headache, neck pain, nausea, vomiting. Patient has had previous cervical spinal surgery, left chronic shoulder pain, and ongoing rectal prolapse. Daughter is her DPOA. She has an abnormal gait hunched over due to the stenosis, frequently uses a walker and sometimes uses a wheelchair. I got some of the history from the patient's daughter, and I have cared for other family members of the patient's daughter. The daughter said she is going to get rid of the cats because of these issues. Past Medical History Pulmonary: COPD, Other (remote smoker) CENTRAL NERVOUS SYSTEM: Dementia Musculoskeletal: Osteoarthritis Renal/: No pertinent hx Dermatology: No pertinent hx Family History Family History: Chronic Bronchitis, Coronary Artery Disease Social History Social History She lives with her daughter. She has fallen a couple of times in the last month. She has dementia. She has an abnormal gait hunched over due to the stenosis, frequently uses a walker and sometimes uses a wheelchair. Quit ALCOHOL: none Drugs: None Lives: with Family Current Medications Current Medications Current Medications Sodium Chloride 1,000 ml @ 1,000 mls/hr 1X ONCE IV Last administered on 02/02/20at 09:06; Start 02/02/20 at 08:45; Stop 02/02/20 at 09:44; Status DC Fentanyl Citrate (Fentanyl 2ml Vial) 75 mcg 1X ONCE IVP Last administered on 02/02/20at 09:06; Start 02/02/20 at 08:45; Stop 02/02/20 at 08:53; Status DC Fentanyl Citrate (Fentanyl 2ml Vial) 75 mcg 1X ONCE IVP Last administered on 02/02/20at 10:23; Start 02/02/20 at 10:15; Stop 02/02/20 at 10:16; Status DC Ondansetron HCl (Zofran) 4 mg PRN Q8HRS PRN IV NAUSEA/VOMITING; Start 02/02/20 at 10:15; Stop 02/03/20 at 10:14 Fentanyl Citrate (Fentanyl 2ml Vial) 50 mcg PRN Q1HR PRN IV PAIN Last administered on 02/02/20at 13:55; Start 02/02/20 at 10:15; Stop 02/03/20 at 10:14 Sodium Chloride (Normal Saline Flush) 3 ml QSHIFT PRN IV AFTER MEDS AND BLOOD DRAWS; Start 02/02/20 at 12:30 Sodium Chloride 1,000 ml @ 65 mls/hr [id number] IV ; Start 02/02/20 at 12:21 Ondansetron HCl (Zofran) 4 mg PRN Q4HRS PRN IV NAUSEA/VOMITING; Start 02/02/20 at 12:30 Acetaminophen (Tylenol) 650 mg PRN Q4HRS PRN PO TEMP OVER 100.4F OR MILD PAIN; Start 02/02/20 at 12:30 Acetaminophen (Tylenol Supp) 650 mg PRN Q4HRS PRN HI TEMP OVER 100.4F OR MILD PAIN; Start 02/02/20 at 12:30 Al Hydroxide/Mg Hydroxide (Mylanta Plus Xs) 30 ml PRN DAILY PRN PO HEARTBURN / GAS; Start 02/02/20 at 12:30 Clonidine HCl (Catapres) 0.1 mg PRN Q6HRS PRN PO SBP>160 OR DBP>90; Start 02/02/20 at 12:30 Sodium Monofluorophosphate (Fleet Adult) 133 ml PRN DAILY PRN HI CONSTIPATION; Start 02/02/20 at 12:30 Docusate Sodium (Colace) 100 mg PRN BID PRN PO HARD STOOLS; Start 02/02/20 at 12:30; Status UNV Albuterol/ Ipratropium (Duoneb) 3 ml Q4HRS W/A NEB ; Start 02/02/20 at 14:00 Guaifenesin (Robitussin) 200 mg PRN Q4HRS PRN PO COUGH; Start 02/02/20 at 12:30; Status UNV Lorazepam (Ativan) 0.5 mg PRN Q4HRS PRN PO ANXIETY / AGITATION Last administered on 02/02/20at 14:11; Start 02/02/20 at 12:30 Enoxaparin Sodium (Lovenox 40mg Syringe) 40 mg Q24H SQ ; Start 02/02/20 at 12:30; Status UNV Alprazolam (Xanax) 0.25 mg PRN Q6HRS PRN PO ANXIETY / AGITATION; Start 02/02/20 at 12:30 Olanzapine (ZyPREXA ZYDIS) 5 mg QHS PO ; Start 02/02/20 at 21:00; Status UNV Polyethylene Glycol (miraLAX Powder BULK BOTTLE) 17 gm DAILY PO ; Start 02/03/20 at 09:00; Status UNV Sennosides (Senna) 8.6 mg BID PO ; Start 02/02/20 at 21:00; Status UNV Non-Formulary Medication (Docusate Sodium ) 250 mg BID PO ; Start 02/02/20 at 21:00; Status UNV Active Scripts Active Alprazolam 0.25 Mg Tablet 0.25 Mg PO PRN Q6HRS PRN Miralax (Polyethylene Glycol 3350) 119 Gm Powder 17 Gm PO DAILY Senna (Sennosides) 8.6 Mg Tablet 8.6 Mg PO BID Docusate Sodium 250 Mg Capsule 250 Mg PO BID Zyprexa Zydis (Olanzapine) 5 Mg Tab.rapdis 5 Mg PO UD Give 1 or 2 dissolving tabs daily as needed for agitation. Don't exceed more than 4 tablets total per 24 hours. Allergies Allergies: Coded Allergies: Penicillins (Verified Allergy, Intermediate, 04/22/18) ROS Review of System Constitutional: Denies fever or chills Eyes: Denies redness or eye pain HEENT: Denies nasal congestion or sore throat Respiratory: Denies cough or shortness of breath Cardiovascular: Denies chest pain or palpitations GI: Denies abdominal pain, nausea, or vomiting : Denies dysuria or hematuria Musculoskeletal: positive for joint pain Integument: Denies rash or skin lesions Neurologic: Denies headache, focal weakness or sensory changes PSYCHOLOGICAL ROS: YES: Disorientation, Memory difficulties Physical Exam General: Alert, Cooperative, Other (mild dementia) HEENT: Atraumatic Lungs: Normal air movement Abdomen: Soft Extremities: No cyanosis, Normal pulses, Other (There is tenderness of the right hip. There is pain with any attempted motion. The skin is intact without ecchymosis. The extremity is shortened and externally rotated. Light touch sensation is intact at the foot and toes. Capillary refill and pulses are intact without evidence of ischemia. Slight dorsiflexion and plantarflexion are possible without evidence of sciatic nerve injury.) Neuro: Normal speech, Sensation intact MUSCULOSKELETAL: Abnormal exam of right (hip as above) Vitals VITALS Vital Signs Date Time Temp Pulse Resp B/P (MAP) Pulse Ox O2 Delivery O2 Flow Rate FiO2 02/02/20 13:55 Room Air 02/02/20 10:52 18 02/02/20 10:30 84 93 02/02/20 08:21 98.7 175/87 (116) 98.7 Labs Labs Laboratory Tests Test 02/02/20 08:20 02/02/20 09:22 02/02/20 10:20 White Blood Count 7.3 x10^3/uL (4.0-11.0) Red Blood Count 3.40 x10^6/uL (3.50-5.40) Hemoglobin 10.4 g/dL (12.0-15.5) Hematocrit 30.7 % (36.0-47.0) Mean Corpuscular Volume 90 fL (79-100) Mean Corpuscular Hemoglobin 31 pg (25-35) Mean Corpuscular Hemoglobin Concent 34 g/dL (31-37) Red Cell Distribution Width 14.0 % (11.5-14.5) Platelet Count 414 x10^3/uL (140-400) Neutrophils (%) (Auto) 73 % (31-73) Lymphocytes (%) (Auto) 14 % (24-48) Monocytes (%) (Auto) 9 % (0-9) Eosinophils (%) (Auto) 4 % (0-3) Basophils (%) (Auto) 1 % (0-3) Neutrophils # (Auto) 5.3 x10^3/uL (1.8-7.7) Lymphocytes # (Auto) 1.0 x10^3/uL (1.0-4.8) Monocytes # (Auto) 0.6 x10^3/uL (0.0-1.1) Eosinophils # (Auto) 0.3 x10^3/uL (0.0-0.7) Basophils # (Auto) 0.1 x10^3/uL (0.0-0.2) Prothrombin Time 12.7 SEC (11.7-14.0) Prothromb Time International Ratio 1.0 (0.8-1.1) Activated Partial Thromboplast Time 28 SEC (24-38) Sodium Level 135 mmol/L (136-145) Potassium Level 4.1 mmol/L (3.5-5.1) Chloride Level 99 mmol/L (98-107) Carbon Dioxide Level 31 mmol/L (21-32) Anion Gap 5 (6-14) Blood Urea Nitrogen 9 mg/dL (7-20) Creatinine 1.2 mg/dL (0.6-1.0) Estimated GFR (Cockcroft-Gault) 43.6 BUN/Creatinine Ratio 8 (6-20) Glucose Level 93 mg/dL (70-99) Calcium Level 8.7 mg/dL (8.5-10.1) Magnesium Level 2.1 mg/dL (1.8-2.4) Total Bilirubin 0.2 mg/dL (0.2-1.0) Aspartate Amino Transf (AST/SGOT) 17 U/L (15-37) Alanine Aminotransferase (ALT/SGPT) 14 U/L (14-59) Alkaline Phosphatase 71 U/L (46-116) Creatine Kinase 87 U/L (26-192) Creatine Kinase MB (Mass) 1.5 ng/mL (0.0-3.6) Creatine Kinase MB Relative Index 1.7 % (0-4) Troponin I Quantitative < 0.017 ng/mL (0.000-0.055) Total Protein 7.0 g/dL (6.4-8.2) Albumin 3.1 g/dL (3.4-5.0) Albumin/Globulin Ratio 0.8 (1.0-1.7) Urine Collection Type Void Urine Color Yellow Urine Clarity Clear Urine pH 6.5 (<5.0-8.0) Urine Specific [place] 1.010 (1.000-1.030) Urine Protein Negative mg/dL (NEG-TRACE) Urine Glucose (UA) Negative mg/dL (NEG) Urine Ketones (Stick) Negative mg/dL (NEG) Urine Blood Small (NEG) Urine Nitrite Negative (NEG) Urine Bilirubin Negative (NEG) Urine Urobilinogen Dipstick 0.2 mg/dL (0.2 mg/dL) Urine Leukocyte Esterase Small (NEG) Urine RBC 1-2 /HPF (0-2) Urine WBC 5-10 /HPF (0-4) Urine Squamous Epithelial Cells Occ /LPF Urine Amorphous Sediment Present /HPF Urine Bacteria Moderate /HPF (0-FEW) SARS-CoV-2 Antigen (Rapid) Negative (NEGATIVE) Laboratory Tests Test 02/02/20 08:20 02/02/20 09:22 02/02/20 10:20 White Blood Count 7.3 x10^3/uL (4.0-11.0) Red Blood Count 3.40 x10^6/uL (3.50-5.40) Hemoglobin 10.4 g/dL (12.0-15.5) Hematocrit 30.7 % (36.0-47.0) Mean Corpuscular Volume 90 fL (79-100) Mean Corpuscular Hemoglobin 31 pg (25-35) Mean Corpuscular Hemoglobin Concent 34 g/dL (31-37) Red Cell Distribution Width 14.0 % (11.5-14.5) Platelet Count 414 x10^3/uL (140-400) Neutrophils (%) (Auto) 73 % (31-73) Lymphocytes (%) (Auto) 14 % (24-48) Monocytes (%) (Auto) 9 % (0-9) Eosinophils (%) (Auto) 4 % (0-3) Basophils (%) (Auto) 1 % (0-3) Neutrophils # (Auto) 5.3 x10^3/uL (1.8-7.7) Lymphocytes # (Auto) 1.0 x10^3/uL (1.0-4.8) Monocytes # (Auto) 0.6 x10^3/uL (0.0-1.1) Eosinophils # (Auto) 0.3 x10^3/uL (0.0-0.7) Basophils # (Auto) 0.1 x10^3/uL (0.0-0.2) Prothrombin Time 12.7 SEC (11.7-14.0) Prothromb Time International Ratio 1.0 (0.8-1.1) Activated Partial Thromboplast Time 28 SEC (24-38) Sodium Level 135 mmol/L (136-145) Potassium Level 4.1 mmol/L (3.5-5.1) Chloride Level 99 mmol/L (98-107) Carbon Dioxide Level 31 mmol/L (21-32) Anion Gap 5 (6-14) Blood Urea Nitrogen 9 mg/dL (7-20) Creatinine 1.2 mg/dL (0.6-1.0) Estimated GFR (Cockcroft-Gault) 43.6 BUN/Creatinine Ratio 8 (6-20) Glucose Level 93 mg/dL (70-99) Calcium Level 8.7 mg/dL (8.5-10.1) Magnesium Level 2.1 mg/dL (1.8-2.4) Total Bilirubin 0.2 mg/dL (0.2-1.0) Aspartate Amino Transf (AST/SGOT) 17 U/L (15-37) Alanine Aminotransferase (ALT/SGPT) 14 U/L (14-59) Alkaline Phosphatase 71 U/L (46-116) Creatine Kinase 87 U/L (26-192) Creatine Kinase MB (Mass) 1.5 ng/mL (0.0-3.6) Creatine Kinase MB Relative Index 1.7 % (0-4) Troponin I Quantitative < 0.017 ng/mL (0.000-0.055) Total Protein 7.0 g/dL (6.4-8.2) Albumin 3.1 g/dL (3.4-5.0) Albumin/Globulin Ratio 0.8 (1.0-1.7) Urine Collection Type Void Urine Color Yellow Urine Clarity Clear Urine pH 6.5 (<5.0-8.0) Urine Specific [place] 1.010 (1.000-1.030) Urine Protein Negative mg/dL (NEG-TRACE) Urine Glucose (UA) Negative mg/dL (NEG) Urine Ketones (Stick) Negative mg/dL (NEG) Urine Blood Small (NEG) Urine Nitrite Negative (NEG) Urine Bilirubin Negative (NEG) Urine Urobilinogen Dipstick 0.2 mg/dL (0.2 mg/dL) Urine Leukocyte Esterase Small (NEG) Urine RBC 1-2 /HPF (0-2) Urine WBC 5-10 /HPF (0-4) Urine Squamous Epithelial Cells Occ /LPF Urine Amorphous Sediment Present /HPF Urine Bacteria Moderate /HPF (0-FEW) SARS-CoV-2 Antigen (Rapid) Negative (NEGATIVE) Images Images Report reviewed, images independently reviewed. There is a displaced right hip intertrochanteric fracture. [facility] [address] [place] [address] IMAGING REPORT Signed PATIENT: JESSICA PITTMAN ACCOUNT: [id number] : 1945 LOCATION: ER AGE: 75 SEX: F EXAM STATUS: REG ER ORD. PHYSICIAN: WAYNE VELA DO REASON: FALL INJURY PAIN ON RIGHT HIP PROCEDURE: HIP RIGHT 2V WITH PELVIS EXAM: AP pelvis, AP and lateral views right hip DATE: 02/02/2020 12:00 AM INDICATION: Reason: FALL INJURY PAIN ON RIGHT HIP / Spl. Instructions: / History: COMPARISON: No Prior FINDINGS/ IMPRESSION: Right hip intertrochanteric fracture is seen in mild varus angulation and mild proximal migration of the femoral shaft component relative to the neck component. Mild bilateral hip joint degenerative changes are seen. Lower lumbar spine degenerative changes are noted. Electronically signed by: Luis E Oates MD (02/02/2020 10:12 AM) [id number] DICTATED and SIGNED BY: LUIS E OATES MD DATE: 02/02/20 1012 Assessment/Plan Assessment/Plan ICD-10 Code: S72.141A Displaced intertrochanteric fracture of right femur, initial encounter for closed fracture I will plan surgery for Thursday probably around noon, depending on OR scheduling availability. This fracture would best be treated by intramedullary nail fixation. I will order COVID testing. We discussed operative versus nonoperative management. I recommend surgery. The alternative to surgery is bedrest which is generally not well tolerated and has high risks of continued pain, bedsores, pneumonia, and blood clots. Surgery is likely safer than nonoperative treatment. Risks of intramedullary nailing would include malunion, nonunion or hardware failure requiring additional surgery, bleeding, blood clots, neurovascular injury, or other potential surgical or anesthetic complications. All of her questions about surgery were answered and she and her daughter desire to proceed. ANDRY FOSTER MD Feb 02, 2020 14:34
[2020-02-02 15:30] VITALS: BP 166/78
--- NOTE | 2020-02-02 15:30 | NUR ---
Admitted from ED after fall with right hip fracture, c/o pain also to left shoulder which is an old injury, has hx of prolapsed rectum and dtr states calls for bathroom frequently, noted scratches on face, back & buttock, dtr states scratches self frequently, patterson catheter to dependent drainage with clear yellow urine, moist intermittent cough with history of COPD, see assessment for farther details, dtr at bedside, evening meal given, call light in reach, bed alarm activated
--- NOTE | 2020-02-02 16:46 | NUR ---
Placed in droplet isolation precautions for moist productive cough, elevated temp of 100.5 will continue to monitor, notified nursing communications supervisor findings
[2020-02-02] MEDS: ALPRAZolam 0.25 MG TABLET PO PRN (16:55)
[2020-02-02] MEDS: ENOXAPARIN 40 MG/0.4 ML SYRINGE. SQ SCH (16:56)
--- NOTE | 2020-02-02 17:00 | NUR ---
PT IS PUI TX NOT GIVEN
[2020-02-02] MEDS ORDERED: GABA600T7 PO (17:11)
[2020-02-02] MEDS ORDERED: ALBU2.5V8 INH (17:38)
[2020-02-02] MEDS ORDERED: METH5TAB2 PO (17:38)
[2020-02-02] MEDS ORDERED: MULT-245 PO (17:38)
[2020-02-02] MEDS ORDERED: TRAZ-123 PO (17:38)
[2020-02-02] MEDS ORDERED: HYDR-2769 PO (17:38)
[2020-02-02] MEDS ORDERED: TIZA4TAB2 PO (17:38)
--- NOTE | 2020-02-02 19:01 | NUR ---
Dtr states is a [facility] pt when asked about organ donor
[2020-02-02 19:25] VITALS: BP 136/78
[2020-02-02] MEDS: traZODone 100 MG TABLET. PO SCH (20:19)
[2020-02-02] MEDS: SENNOSIDES 8.6 MG TABLET PO SCH (20:19)
[2020-02-02] MEDS: GABAPENTIN 300 MG CAPSULE. PO SCH (20:19)
[2020-02-02] MEDS: DOCUSATE SODIUM 100 MG CAPSULE. PO SCH (20:19)
[2020-02-02 22:32] VITALS: BP 162/84
[2020-02-03] MEDS: LORazepam 0.5 MG TABLET PO PRN ×2 (00:01→05:11)
[2020-02-03] MEDS: fentaNYL PF VIAL 100 MCG/2 ML VIAL IV PRN ×4 (00:01→09:43)
[2020-02-03 03:00] VITALS: BP 140/82
[2020-02-03 06:00] LABS: BASO # 0.1 x10^3/uL (0.0-0.2); BASO % 1 % (0-3); EOS # 0.1 x10^3/uL (0.0-0.7); EOS % 1 % (0-3); HEMATOCRIT 27.6 % (36.0-47.0); HEMOGLOBIN 9.3 g/dL (12.0-15.5); LYMPH # 1.1 x10^3/uL (1.0-4.8); LYMPH % 17 % (24-48); MEAN CORPUSCULAR HEMOGLOBIN 31 pg (25-35); MEAN CORPUSCULAR HGB CONC 34 g/dL (31-37); MEAN CORPUSCULAR VOLUME 91 fL (79-100); MONO # 0.9 x10^3/uL (0.0-1.1); MONO % 14 % (0-9); NEUT # 4.3 x10^3/uL (1.8-7.7); NEUT % 66 % (31-73); PLATELET COUNT 320 x10^3/uL (140-400); RED BLOOD COUNT 3.04 x10^6/uL (3.50-5.40); WHITE BLOOD COUNT 6.5 x10^3/uL (4.0-11.0)
[2020-02-03] MEDS: IPRATRPIUM/ALBUTEROL 0.5/2.5MG 3 ML NEBU. NEB SCH ×5 (06:00→22:00)
[2020-02-03 06:19] LABS: CALCIUM 8.3 mg/dL (8.5-10.1); GFR 53.8; POTASSIUM 4.3 mmol/L (3.5-5.1)
[2020-02-03] MEDS ORDERED: fentaNYL PF VIAL 100 MCG/2 ML VIAL IV PRN ×2 (07:00)
[2020-02-03] MEDS ORDERED: PROCHLORPERAZINE 10 MG/2 ML VIAL. IV PRN (07:00)
[2020-02-03] MEDS ORDERED: MORPHINE SULFATE 2 MG/ML VIAL. IV PRN (07:00)
[2020-02-03] MEDS ORDERED: ONDANSETRON PF 4 MG/2 ML VIAL. IV PRN (07:00)
[2020-02-03] MEDS ORDERED: IV RINGERS,LACTATED 1000ML 1,000 ML IV SCH (07:00)
[2020-02-03] MEDS ORDERED: HYDROmorphone 2 MG/ML VIAL IV PRN (07:00)
[2020-02-03 07:05] VITALS: BP 156/87
[2020-02-03] MEDS: DOCUSATE SODIUM 100 MG CAPSULE. PO SCH ×2 (08:14→21:00)
[2020-02-03] MEDS: GABAPENTIN 300 MG CAPSULE. PO SCH ×3 (08:15→21:07)
[2020-02-03] MEDS: POLYETHYLENE GLYCOL 3350 17 GM PACKET. PO SCH (08:15)
[2020-02-03] MEDS: SENNOSIDES 8.6 MG TABLET PO SCH ×2 (08:15→21:00)
[2020-02-03] MEDS: IV NORMAL SALINE 1000ML BAG 1,000 ML IV SCH (09:43)
--- NOTE | 2020-02-03 09:52 | PDOC ---
PROGRESS NOTES Date of Service: DATE: 02/03/20 TIME: 09:52 Chief Complaint Chief Complaint VTE Prophylaxis Ordered VTE Prophylaxis Devices: Yes VTE Pharmacological Prophylaxi: Yes Assessment/Plan Assessment/Plan IMPRESSION: Mechanical fall acute Right hip intertrochanteric fracture is seen in mild varus angulation and mild proximal migration of the femoral shaft component relative to the neck component. OSTEOPOROSIS DEMENTIA Remote tobacco abuse history of emphysema on cxr emphysematous changes can have this radiographic appearance. A superimposed mild edema is not excluded given the mild interst itial prominence. normocytic anemia plan admit ortho consult stacia salcedo DNR Daughter is DPOA 12 MIN REVIEW DVT PROPHYLAXIS, lovenox iv pain control prn NPO Vitals Vitals Vital Signs Date Time Temp Pulse Resp B/P (MAP) Pulse Ox O2 Delivery O2 Flow Rate FiO2 02/03/20 09:43 Room Air 02/03/20 07:05 98.4 87 18 156/87 (110) 91 98.4 Physical Exam Physical Exam Constitutional: Patient appears frail, not distressed, responding to questions appropriately smiling HENT: Normocephalic, atraumatic, widespread excoriations on face and scalp Eyes: Pupils 3 mm bilaterally and reactive to light consensual and direct, EOMI, conjunctiva normal, no discharge Neck: Limited range of motion, no tender to palpation of midline C-spine or paraspinal musculature, cervical hardware palpable to palpation Lungs & Thorax: , no signs of respiratory distress Abdomen: Soft, no tenderness Skin: Warm, dry, no erythema, no rash Back: No tenderness to palpation of midline thoracic or lumbar spine Extremities: Right hip is tender to deep and superficial palpation, maximal tenderness approximately at right greater trochanteric area, right lower extremity range of motion is limited by pain, foot dorsiflexion and plantar flexion muscle strength 4 out of 5 bilaterally. Dorsalis pedis pulse +2 bilaterally. Right posterior tibial pulse nonpalpable. Neurologic: Alert, normal motor function, normal sensory function, evaluation of focal deficits limited by pain in the right hip Psychologic: Affect normal, memory impairment, short term impaired General: Alert, Cooperative HEENT: Atraumatic Lungs: Clear to auscultation Heart: RRR Breasts: Not examined Abdomen: Normal bowel sounds, Soft, No tenderness, No hepatosplenomegaly Rectal Exam: not examined PELVIC: Examination not indicated Extremities: No cyanosis, No edema Neuro: Normal speech General: Alert, Cooperative Abdomen: Normal bowel sounds, Soft, No tenderness, No hepatosplenomegaly Extremities: No cyanosis, No edema Labs LABS Laboratory Tests Test 02/02/20 10:20 02/03/20 05:25 SARS-CoV-2 Antigen (Rapid) Negative (NEGATIVE) White Blood Count 6.5 x10^3/uL (4.0-11.0) Red Blood Count 3.04 x10^6/uL (3.50-5.40) Hemoglobin 9.3 g/dL (12.0-15.5) Hematocrit 27.6 % (36.0-47.0) Mean Corpuscular Volume 91 fL (79-100) Mean Corpuscular Hemoglobin 31 pg (25-35) Mean Corpuscular Hemoglobin Concent 34 g/dL (31-37) Red Cell Distribution Width 14.0 % (11.5-14.5) Platelet Count 320 x10^3/uL (140-400) Neutrophils (%) (Auto) 66 % (31-73) Lymphocytes (%) (Auto) 17 % (24-48) Monocytes (%) (Auto) 14 % (0-9) Eosinophils (%) (Auto) 1 % (0-3) Basophils (%) (Auto) 1 % (0-3) Neutrophils # (Auto) 4.3 x10^3/uL (1.8-7.7) Lymphocytes # (Auto) 1.1 x10^3/uL (1.0-4.8) Monocytes # (Auto) 0.9 x10^3/uL (0.0-1.1) Eosinophils # (Auto) 0.1 x10^3/uL (0.0-0.7) Basophils # (Auto) 0.1 x10^3/uL (0.0-0.2) Sodium Level 134 mmol/L (136-145) Potassium Level 4.3 mmol/L (3.5-5.1) Chloride Level 100 mmol/L (98-107) Carbon Dioxide Level 27 mmol/L (21-32) Anion Gap 7 (6-14) Blood Urea Nitrogen 9 mg/dL (7-20) Creatinine 1.0 mg/dL (0.6-1.0) Estimated GFR (Cockcroft-Gault) 53.8 Glucose Level 104 mg/dL (70-99) Calcium Level 8.3 mg/dL (8.5-10.1) Assessment and Plan Assessmemt and Plan Problems Medical Problems: (1) Closed right hip fracture Status: Acute DAUGHTER IS DPOA decisions must be made about the use of emergency treatments to keep you alive. Doctors can use several artificial or mechanical ways to try to do this. Decisions that might come up at this time relate to: CPR (cardiopulmonary resuscitation) Ventilator use Artificial nutrition (tube feeding) and artificial hydration (IV, or intravenous, fluids) Comfort care What is CPR? Cardiopulmonary resuscitation might restore your heartbeat if your heart stops or is in a life-threatening abnormal rhythm. It involves repeatedly pushing on the chest with force, while putting air into the lungs. This force has to be quite strong, and sometimes ribs are broken or a lung collapses. Electric shocks, known as defibrillation, and medicines might also be used as part of the process. The heart of a young, otherwise healthy person might resume beating normally after CPR. Often, CPR does not succeed in older adults who have multiple chronic illnesses or who are already frail. Using a ventilator as emergency treatment. Ventilators are machines that help you breathe. A tube connected to the ventilator is put through the throat into the trachea (windpipe) so the machine can force air into the lungs. Putting the tube down the throat is called intubation. Because the tube is uncomfortable, medicines are often used to keep you sedated while on a ventilator. If you are expected to remain on a ventilator for a long time, a doctor may perform a tracheotomy or "trach" (rhymes with "make"). During this bedside surgery, the tube is inserted directly into the trachea through a hole in the neck. For long- term help with breathing, a trach is more comfortable, and sedation is not needed. People using such a breathing tube are not able to speak without special help because exhaled air does not go past their vocal cords. Using artificial nutrition and hydration near the end of life. If you are not able to eat, you may be fed through a feeding tube that is threaded through the nose down to your stomach. If tube feeding is still needed for an extended period, a feeding tube may be surgically inserted directly into your stomach. Hand feeding (sometimes called assisted oral feeding) is an alternative to tube feeding. This approach may have fewer risks, especially for people with dementia. If you are not able to drink, you may be provided with IV fluids. These are delivered through a thin plastic tube inserted into a vein. Comment Review of Relevant I have reviewed the following items alyx (where applicable) has been applied. Labs Laboratory Tests Test 02/02/20 08:20 02/02/20 09:22 02/02/20 10:20 02/03/20 05:25 White Blood Count 7.3 x10^3/uL (4.0-11.0) 6.5 x10^3/uL (4.0-11.0) Red Blood Count 3.40 x10^6/uL (3.50-5.40) 3.04 x10^6/uL (3.50-5.40) Hemoglobin 10.4 g/dL (12.0-15.5) 9.3 g/dL (12.0-15.5) Hematocrit 30.7 % (36.0-47.0) 27.6 % (36.0-47.0) Mean Corpuscular Volume 90 fL (79-100) 91 fL (79-100) Mean Corpuscular Hemoglobin 31 pg (25-35) 31 pg (25-35) Mean Corpuscular Hemoglobin Concent 34 g/dL (31-37) 34 g/dL (31-37) Red Cell Distribution Width 14.0 % (11.5-14.5) 14.0 % (11.5-14.5) Platelet Count 414 x10^3/uL (140-400) 320 x10^3/uL (140-400) Neutrophils (%) (Auto) 73 % (31-73) 66 % (31-73) Lymphocytes (%) (Auto) 14 % (24-48) 17 % (24-48) Monocytes (%) (Auto) 9 % (0-9) 14 % (0-9) Eosinophils (%) (Auto) 4 % (0-3) 1 % (0-3) Basophils (%) (Auto) 1 % (0-3) 1 % (0-3) Neutrophils # (Auto) 5.3 x10^3/uL (1.8-7.7) 4.3 x10^3/uL (1.8-7.7) Lymphocytes # (Auto) 1.0 x10^3/uL (1.0-4.8) 1.1 x10^3/uL (1.0-4.8) Monocytes # (Auto) 0.6 x10^3/uL (0.0-1.1) 0.9 x10^3/uL (0.0-1.1) Eosinophils # (Auto) 0.3 x10^3/uL (0.0-0.7) 0.1 x10^3/uL (0.0-0.7) Basophils # (Auto) 0.1 x10^3/uL (0.0-0.2) 0.1 x10^3/uL (0.0-0.2) Prothrombin Time 12.7 SEC (11.7-14.0) Prothromb Time International Ratio 1.0 (0.8-1.1) Activated Partial Thromboplast Time 28 SEC (24-38) Sodium Level 135 mmol/L (136-145) 134 mmol/L (136-145) Potassium Level 4.1 mmol/L (3.5-5.1) 4.3 mmol/L (3.5-5.1) Chloride Level 99 mmol/L (98-107) 100 mmol/L (98-107) Carbon Dioxide Level 31 mmol/L (21-32) 27 mmol/L (21-32) Anion Gap 5 (6-14) 7 (6-14) Blood Urea Nitrogen 9 mg/dL (7-20) 9 mg/dL (7-20) Creatinine 1.2 mg/dL (0.6-1.0) 1.0 mg/dL (0.6-1.0) Estimated GFR (Cockcroft-Gault) 43.6 53.8 BUN/Creatinine Ratio 8 (6-20) Glucose Level 93 mg/dL (70-99) 104 mg/dL (70-99) Calcium Level 8.7 mg/dL (8.5-10.1) 8.3 mg/dL (8.5-10.1) Magnesium Level 2.1 mg/dL (1.8-2.4) Total Bilirubin 0.2 mg/dL (0.2-1.0) Aspartate Amino Transf (AST/SGOT) 17 U/L (15-37) Alanine Aminotransferase (ALT/SGPT) 14 U/L (14-59) Alkaline Phosphatase 71 U/L (46-116) Creatine Kinase 87 U/L (26-192) Creatine Kinase MB (Mass) 1.5 ng/mL (0.0-3.6) Creatine Kinase MB Relative Index 1.7 % (0-4) Troponin I Quantitative < 0.017 ng/mL (0.000-0.055) Total Protein 7.0 g/dL (6.4-8.2) Albumin 3.1 g/dL (3.4-5.0) Albumin/Globulin Ratio 0.8 (1.0-1.7) Urine Collection Type Void Urine Color Yellow Urine Clarity Clear Urine pH 6.5 (<5.0-8.0) Urine Specific [place] 1.010 (1.000-1.030) Urine Protein Negative mg/dL (NEG-TRACE) Urine Glucose (UA) Negative mg/dL (NEG) Urine Ketones (Stick) Negative mg/dL (NEG) Urine Blood Small (NEG) Urine Nitrite Negative (NEG) Urine Bilirubin Negative (NEG) Urine Urobilinogen Dipstick 0.2 mg/dL (0.2 mg/dL) Urine Leukocyte Esterase Small (NEG) Urine RBC 1-2 /HPF (0-2) Urine WBC 5-10 /HPF (0-4) Urine Squamous Epithelial Cells Occ /LPF Urine Amorphous Sediment Present /HPF Urine Bacteria Moderate /HPF (0-FEW) SARS-CoV-2 Antigen (Rapid) Negative (NEGATIVE) Laboratory Tests Test 02/02/20 10:20 02/03/20 05:25 SARS-CoV-2 Antigen (Rapid) Negative (NEGATIVE) White Blood Count 6.5 x10^3/uL (4.0-11.0) Red Blood Count 3.04 x10^6/uL (3.50-5.40) Hemoglobin 9.3 g/dL (12.0-15.5) Hematocrit 27.6 % (36.0-47.0) Mean Corpuscular Volume 91 fL (79-100) Mean Corpuscular Hemoglobin 31 pg (25-35) Mean Corpuscular Hemoglobin Concent 34 g/dL (31-37) Red Cell Distribution Width 14.0 % (11.5-14.5) Platelet Count 320 x10^3/uL (140-400) Neutrophils (%) (Auto) 66 % (31-73) Lymphocytes (%) (Auto) 17 % (24-48) Monocytes (%) (Auto) 14 % (0-9) Eosinophils (%) (Auto) 1 % (0-3) Basophils (%) (Auto) 1 % (0-3) Neutrophils # (Auto) 4.3 x10^3/uL (1.8-7.7) Lymphocytes # (Auto) 1.1 x10^3/uL (1.0-4.8) Monocytes # (Auto) 0.9 x10^3/uL (0.0-1.1) Eosinophils # (Auto) 0.1 x10^3/uL (0.0-0.7) Basophils # (Auto) 0.1 x10^3/uL (0.0-0.2) Sodium Level 134 mmol/L (136-145) Potassium Level 4.3 mmol/L (3.5-5.1) Chloride Level 100 mmol/L (98-107) Carbon Dioxide Level 27 mmol/L (21-32) Anion Gap 7 (6-14) Blood Urea Nitrogen 9 mg/dL (7-20) Creatinine 1.0 mg/dL (0.6-1.0) Estimated GFR (Cockcroft-Gault) 53.8 Glucose Level 104 mg/dL (70-99) Calcium Level 8.3 mg/dL (8.5-10.1) Medications Current Medications Sodium Chloride 1,000 ml @ 1,000 mls/hr 1X ONCE IV Last administered on 02/02/20at 09:06; Start 02/02/20 at 08:45; Stop 02/02/20 at 09:44; Status DC Fentanyl Citrate (Fentanyl 2ml Vial) 75 mcg 1X ONCE IVP Last administered on 02/02/20at 09:06; Start 02/02/20 at 08:45; Stop 02/02/20 at 08:53; Status DC Fentanyl Citrate (Fentanyl 2ml Vial) 75 mcg 1X ONCE IVP Last administered on 02/02/20at 10:23; Start 02/02/20 at 10:15; Stop 02/02/20 at 10:16; Status DC Ondansetron HCl (Zofran) 4 mg PRN Q8HRS PRN IV NAUSEA/VOMITING; Start 02/02/20 at 10:15; Stop 02/03/20 at 10:14 Fentanyl Citrate (Fentanyl 2ml Vial) 50 mcg PRN Q1HR PRN IV PAIN Last administered on 02/03/20at 09:43; Start 02/02/20 at 10:15; Stop 02/03/20 at 10:14 Sodium Chloride (Normal Saline Flush) 3 ml QSHIFT PRN IV AFTER MEDS AND BLOOD DRAWS; Start 02/02/20 at 12:30 Sodium Chloride 1,000 ml @ 75 mls/hr [id number] IV Last administered on 02/03/20at 09:43; Start 02/02/20 at 12:21 Ondansetron HCl (Zofran) 4 mg PRN Q4HRS PRN IV NAUSEA/VOMITING; Start 02/02/20 at 12:30 Acetaminophen (Tylenol) 650 mg PRN Q4HRS PRN PO TEMP OVER 100.4F OR MILD PAIN; Start 02/02/20 at 12:30 Acetaminophen (Tylenol Supp) 650 mg PRN Q4HRS PRN NC TEMP OVER 100.4F OR MILD PAIN; Start 02/02/20 at 12:30 Al Hydroxide/Mg Hydroxide (Mylanta Plus Xs) 30 ml PRN DAILY PRN PO HEARTBURN / GAS; Start 02/02/20 at 12:30 Clonidine HCl (Catapres) 0.1 mg PRN Q6HRS PRN PO SBP>160 OR DBP>90; Start 02/02/20 at 12:30 Sodium Monofluorophosphate (Fleet Adult) 133 ml PRN DAILY PRN NC CONSTIPATION; Start 02/02/20 at 12:30 Docusate Sodium (Colace) 100 mg PRN BID PRN PO HARD STOOLS; Start 02/02/20 at 12:30 Albuterol/ Ipratropium (Duoneb) 3 ml Q4HRS W/A NEB ; Start 02/02/20 at 14:00 Guaifenesin (Robitussin) 200 mg PRN Q4HRS PRN PO COUGH; Start 02/02/20 at 12:30 Lorazepam (Ativan) 0.5 mg PRN Q4HRS PRN PO ANXIETY / AGITATION Last administered on 02/03/20at 05:11; Start 02/02/20 at 12:30 Enoxaparin Sodium (Lovenox 40mg Syringe) 40 mg Q24H SQ Last administered on 02/02/20at 16:56; Start 02/02/20 at 16:00 Alprazolam (Xanax) 0.25 mg PRN Q6HRS PRN PO ANXIETY / AGITATION Last administered on 02/02/20at 16:55; Start 02/02/20 at 12:30 Olanzapine (ZyPREXA ZYDIS) 5 mg QHS PO Last administered on 02/02/20at 20:19; Start 02/02/20 at 20:00 Polyethylene Glycol (miraLAX PACKET) 17 gm DAILY PO ; Start 02/03/20 at 09:00 Sennosides (Senna) 8.6 mg BID PO Last administered on 02/02/20at 20:19; Start 02/02/20 at 20:00 Docusate Sodium (Colace) 200 mg BID PO Last administered on 02/02/20at 20:19; Start 02/02/20 at 21:00 Ondansetron HCl (Zofran) 4 mg PRN Q6HRS PRN IV NAUSEA/VOMITING; Start 02/03/20 at 07:00; Stop 02/03/20 at 20:00 Fentanyl Citrate (Fentanyl 2ml Vial) 25 mcg PRN Q5MIN PRN IV MILD PAIN 1-3; Start 02/03/20 at 07:00; Stop 02/03/20 at 20:00 Fentanyl Citrate (Fentanyl 2ml Vial) 50 mcg PRN Q5MIN PRN IV MODERATE TO SEVERE PAIN; Start 02/03/20 at 07:00; Stop 02/03/20 at 20:00 Morphine Sulfate (Morphine Sulfate) 1 mg PRN Q10MIN PRN IV SEVERE PAIN 7-10; Start 02/03/20 at 07:00; Stop 02/03/20 at 20:00 Ringer's Solution 1,000 ml @ 30 mls/hr Q24H IV ; Start 02/03/20 at 07:00; Stop 02/03/20 at 18:59 Hydromorphone HCl (Dilaudid) 0.5 mg PRN Q10MIN PRN IV SEV PAIN, Second choice; Start 02/03/20 at 07:00; Stop 02/03/20 at 20:00 Prochlorperazine Edisylate (Compazine) 5 mg PACU PRN PRN IV NAUSEA, MRX1; Start 02/03/20 at 07:00; Stop 02/03/20 at 20:00 Trazodone HCl (Desyrel) 100 mg QHS PO Last administered on 02/02/20at 20:19; Start 02/02/20 at 21:00 Gabapentin (Neurontin) 600 mg TID PO Last administered on 02/02/20at 20:19; Start 02/02/20 at 21:00 Active Scripts Active Alprazolam 0.25 Mg Tablet 0.25 Mg PO PRN Q6HRS PRN Miralax (Polyethylene Glycol 3350) 119 Gm Powder 17 Gm PO DAILY Senna (Sennosides) 8.6 Mg Tablet 8.6 Mg PO BID Docusate Sodium 250 Mg Capsule 250 Mg PO BID Zyprexa Zydis (Olanzapine) 5 Mg Tab.rapdis 5 Mg PO UD Give 1 or 2 dissolving tabs daily as needed for agitation. Don't exceed more than 4 tablets total per 24 hours. Reported Hydrocodone-Apap 10-325 (Hydrocodone Bit/Acetaminophen) 1 Tab Tablet 1 Tab PO TID Methadone Hcl 5 Mg Tablet 1 Tab PO TID Proair Hfa Inhaler (Albuterol Sulfate) 8.5 Gm Hfa.aer.ad 1 Puff INH PRN Q6HRS PRN Multi Vitamin Daily (Multivitamin) 1 Each Tablet 1 Each PO DAILY Trazodone Hcl 100 Mg Tablet 1 Tab PO QHS Tizanidine Hcl 4 Mg Tablet 4 Mg PO Q6HRS PRN Gabapentin 600 Mg Tablet 600 Mg PO TID Vitals/I & O Vital Sign - Last 24 Hours 02/02/20 02/02/20 02/02/20 02/02/20 10:00 10:23 10:30 10:52 Pulse 78 84 Resp 20 22 18 Pulse Ox 97 93 O2 Delivery Room Air Room Air 02/02/20 02/02/20 02/02/20 02/02/20 13:55 15:30 15:49 16:56 Temp 100.5 100.5 Pulse 83 Resp 18 B/P (MAP) 166/78 (107) Pulse Ox 93 O2 Delivery Room Air Room Air Room Air Room Air 02/02/20 02/02/20 02/02/20 02/02/20 17:30 19:25 19:53 19:53 Temp 97.4 97.4 Pulse 95 Resp 18 18 B/P (MAP) 136/78 (97) Pulse Ox 92 O2 Delivery Room Air Room Air Room Air Room Air 02/02/20 02/02/20 02/03/20 02/03/20 20:23 22:32 00:01 00:31 Temp 97.8 97.8 Pulse 89 Resp 16 18 18 14 B/P (MAP) 162/84 (110) Pulse Ox 92 93 93 O2 Delivery Room Air Room Air Room Air Room Air 02/03/20 02/03/20 02/03/20 02/03/20 03:00 05:12 05:42 07:05 Temp 99.7 98.4 99.7 98.4 Pulse 92 87 Resp 18 20 18 B/P (MAP) 140/82 (101) 156/87 (110) Pulse Ox 90 90 91 O2 Delivery Room Air Room Air Room Air Room Air 02/03/20 02/03/20 02/03/20 02/03/20 07:40 07:45 08:10 09:43 O2 Delivery Room Air Room Air Room Air Room Air Intake and Output 02/02/20 02/02/20 02/03/20 15:00 23:00 07:00 Intake Total 1000 ml 300 ml 344 ml Output Total 500 ml 750 ml Balance 1000 ml -200 ml -406 ml Justicifation of Admission Dx: Justifications for Admission: Justification of Admission Dx: Yes Comments: HIP FRACTURE ELISABETH VARGAS MD Feb 03, 2020 09:52
[2020-02-03 11:11] VITALS: BP 179/94
[2020-02-03] MEDS ORDERED: LIDOCAINE 2% PF 5 ML VIAL. ONE (12:36)
[2020-02-03] MEDS ORDERED: PROPOFOL 10 MG/ML (20ML) VIAL. IV ONE (12:36)
[2020-02-03] MEDS ORDERED: fentaNYL PF VIAL 100 MCG/2 ML VIAL ONE (12:37)
--- NOTE | 2020-02-03 13:01 | NUR ---
Surgery per bed. Accompanied by daughter.
[2020-02-03] MEDS ORDERED: CLINDAMYCIN 900MG PREMIX 50 ML IV ONE (13:21)
[2020-02-03] MEDS ORDERED: CLINDAMYCIN 900MG PREMIX 50 ML IV PRN (13:30)
[2020-02-03] MEDS ORDERED: [UNRECOGNIZED DRUG - REMARK] INT ART ONE (14:00)
[2020-02-03] MEDS ORDERED: DEXAMETHASONE SOD PHOS 4 MG/ML VIAL ONE (14:21)
[2020-02-03] MEDS ORDERED: ONDANSETRON PF 4 MG/2 ML VIAL. ONE (14:21)
[2020-02-03] MEDS ORDERED: DEXTROSE 50% 25 GM / 50ML DISP.SYRIN. IV PRN (14:45)
[2020-02-03] MEDS ORDERED: POLYETHYLENE GLYCOL 3350 17 GM PACKET. PO PRN (14:45)
[2020-02-03] MEDS ORDERED: fentaNYL PF VIAL 100 MCG/2 ML VIAL IVP PRN (14:45)
[2020-02-03] MEDS ORDERED: ONDANSETRON PF 4 MG/2 ML VIAL. IVP PRN (14:45)
--- NOTE | 2020-02-03 14:45 | PDOC4 ---
Operative Note Operative Note Date of Procedure: February 03, 2020 Pre-Op Diagnosis: Displaced intertrochanteric fracture of right femur, initial encounter for closed fracture S72.141A Post-Op Diagnosis: same Procedure: right hip treatment of intertrochanteric femoral fracture with intramedullary implant, with interlocking screws, CPT 36587 Surgeon: Andry Martin MD Anesthesia Type: General EBL: 150 mL Specimens Obtained: none Complications: None Implant Company: [employer] Implants: Gamma 3 Locking Nail 11 mm x 180 mm x 125; Gamma 3 system Lag Screw Titanium 10.5 mm x 85 mm; locking screw fully threaded 5 mm x 35 mm INDICATION FOR PROCEDURE: This patient is 75 years old, and fell, sustaining a right hip fracture. X-rays show an unstable intertrochanteric hip fracture. The patient, the patient's family, and I discussed the risks, benefits and alternatives of treatment. The alternative for treatment is bedrest, which I generally do not recommend. I recommended intramedullary nailing, and I talked to them about the potential risks of this, including bleeding, infection, blood clots, malunion, nonunion or other potential surgical or anesthetic complications. All of the questions about surgery were answered, and they desired to proceed. A written consent was obtained. PROCEDURE IN DETAIL: The patient was identified in the preoperative holding area. The correct right hip was marked by me. The patient was taken to the ope rating room, where the patient was anesthetized by the Department of Anesthesia. Preoperative antibiotics were given intravenously. The HANA table was used and the well leg was placed in a padded lithotomy leg orellana while the foot of the left leg was placed in a traction foot boot. A time-out procedure was performed. The image intensifier was used, and a preliminary reduction pe rformed. All of the images were interpreted intraoperatively by me, and the image intensifier was used throughout the case. The right hip area was prepared in sterile fashion with ChloraPrep solution and a sterile barrier Ioban hip drape was used. An incision was made over the superior aspect of the greater trochanter. A 3.2 mm guide pin was placed at the tip of the greater trochanter, and advanced into the intramedullary canal. The one step conical reamer was used over the guidewire, and a reamer sleeve was used to protect the soft tissues. No intramedullary reaming was required.The chosen nail was attached to the targeting device with the Nail Holding Screw. The nail was placed down the canal on the targeting device and the position confirmed on the image intensifier. A second incision was now used over the lower part of the greater trochanter, to place a guide pin through the guide, near the center-center position of the femoral head, and measured. The tunnel for the lag screw was reamed using the cannulated Lag Screw Step Drill. The chosen lag screw was inserted using the guide and advanced until there was a low tip-apex distance, by using sequential checks on the image intensifier. Traction on the HANA table was released. A Set Screw was now placed to lock the Lag Screw. Finally, a 5.0 mm diameter Distal Cross Lock Screw was, using the targeting guide after predrilling, and measuring.. Satisfactory fracture reduction and hardware position was obtained using image intensifier views in multiple planes. Copious irrigation was used and the fascia was closed with #2 Vicryl. Bovie electrocautery was used for hemostasis. My social human services assistants completed the closure with #2-0 Vicryl and erica. I used a multidrug injection for hemostasis and pain relief which includes ropivacaine, epinephrine, and morphine.A bulky sterile dressing was applied. The patient was gently transferred from the fracture table back to a hospital bed. There were no apparent complications. ANDRY MARTIN MD Feb 03, 2020 14:45
[2020-02-03] MEDS: IV 1/2 NORMAL SALINE 1,000 ML IV SCH (16:00)
--- NOTE | 2020-02-03 16:03 | NUR ---
Spoke with daughter, Flor, about changing rooms. Going from room 454 to room 534.Verbalized understanding. Pt will be transferred from PACU. Report called to Sera on .
[2020-02-03] MEDS: oxyCODONE/APAP 5/325 1 TAB TABLET PO PRN (17:30)
[2020-02-03] MEDS: ENOXAPARIN 40 MG/0.4 ML SYRINGE. SQ SCH (17:37)
[2020-02-03 19:00] VITALS: BP 139/84
[2020-02-03] MEDS: traZODone 100 MG TABLET. PO SCH (21:07)
[2020-02-03] MEDS: ASPIRIN ENTERIC COATED 325 MG TABLET.DR. PO SCH (21:07)
[2020-02-03 22:34] VITALS: BP 103/47
[2020-02-03] MEDS: CLINDAMYCIN 900MG PREMIX 50 ML IV SCH (22:37)
[2020-02-03 23:00] VITALS: BP 108/58
[2020-02-04] VITALS (8 sets, daily range): BP systolic 89–143; BP diastolic 43–70
[2020-02-04] MEDS: CLINDAMYCIN 900MG PREMIX 50 ML IV SCH ×2 (02:44→08:15)
[2020-02-04] MEDS: IV 1/2 NORMAL SALINE 1,000 ML IV SCH (05:20)
[2020-02-04] MEDS: IPRATRPIUM/ALBUTEROL 0.5/2.5MG 3 ML NEBU. NEB SCH ×5 (06:00→20:18)
[2020-02-04] MEDS ORDERED: MAGNESIUM HYDROXIDE 2,400 MG/30 ML ORAL.SUSP. PO PRN (06:00)
[2020-02-04] MEDS: IV NORMAL SALINE 1000ML BAG 1,000 ML IV SCH ×2 (06:39→18:47)
[2020-02-04 07:25] LABS: BASO % 0 % (0-3); EOS % 0 % (0-3); HEMATOCRIT 23.9 % (36.0-47.0); HEMOGLOBIN 8.3 g/dL (12.0-15.5); LYMPH # 1.3 x10^3/uL (1.0-4.8); LYMPH % 14 % (24-48); MEAN CORPUSCULAR HEMOGLOBIN 31 pg (25-35); MEAN CORPUSCULAR HGB CONC 35 g/dL (31-37); MEAN CORPUSCULAR VOLUME 90 fL (79-100); MONO # 1.4 x10^3/uL (0.0-1.1); MONO % 15 % (0-9); NEUT # 6.6 x10^3/uL (1.8-7.7); NEUT % 71 % (31-73); PLATELET COUNT 291 x10^3/uL (140-400); RED BLOOD COUNT 2.65 x10^6/uL (3.50-5.40); RED CELL DISTRIBUTION WIDTH 13.8 % (11.5-14.5); WHITE BLOOD COUNT 9.4 x10^3/uL (4.0-11.0)
[2020-02-04 07:41] LABS: CALCIUM 8.2 mg/dL (8.5-10.1); CREATININE 0.9 mg/dL (0.6-1.0); GFR 60.7; POTASSIUM 4.2 mmol/L (3.5-5.1)
[2020-02-04] MEDS: CHOLECALCIFEROL (VITAMIN D3) 1,000 UNIT TABLET PO SCH (08:15)
[2020-02-04] MEDS: SENNOSIDES 8.6 MG TABLET PO SCH ×2 (08:15→20:53)
[2020-02-04] MEDS: ASPIRIN ENTERIC COATED 325 MG TABLET.DR. PO SCH ×2 (08:15→20:46)
[2020-02-04] MEDS: GABAPENTIN 300 MG CAPSULE. PO SCH ×3 (08:15→20:46)
[2020-02-04] MEDS: DOCUSATE SODIUM 100 MG CAPSULE. PO SCH ×2 (08:16→20:47)
[2020-02-04] MEDS: oxyCODONE/APAP 5/325 1 TAB TABLET PO PRN ×5 (08:16→20:48)
[2020-02-04] MEDS: MULTIVITAMIN with MINERAL TABLET. PO SCH (08:17)
[2020-02-04] MEDS: POLYETHYLENE GLYCOL 3350 17 GM PACKET. PO SCH (08:17)
[2020-02-04] MEDS ORDERED: SENNOSIDES/DOCUSATE 8.6/50MG TABLET. PO SCH (09:00)
--- NOTE | 2020-02-04 14:27 | PDOC ---
[facility] PROGRESS NOTE Date of Service DOS: DATE: 02/04/20 TIME: 14:25 Chief Complaint Chief Complaint Assessment/Plan IMPRESSION: Mechanical fall acute Right hip intertrochanteric fracture is seen in mild varus angulation and mild proximal migration of the femoral shaft component relative to the neck component status post right hip treatment of intertrochanteric femoral fracture with intramedullary implant, with interlocking screws 02/03/2020 Osteoporosis Dementia Remote tobacco abuse history of emphysema on cxr emphysematous changes can have this radiographic appearance. A superimposed mild edema is not excluded given the mild interstitial prominence. normocytic anemia plan admit Appreciate Ortho recommendations duonebs qid DNR DVT PROPHYLAXIS, lovenox iv pain control prn Advance diet as tolerated Surrogate decision maker is the daughter History of Present Illness History of Present Illness Patient seen in ED with complaints of right hip pain after sustaining a fall. x ray c/w hip fx, mechanical fall Patient has a history of moderate to severe dementia and is accompanied by her daughter who is providing a collateral history. The patient states "she fell after chasing her cats out the door". Patient complains of a severe pain in the right hip described as a deep and rated at a 11 out of 10 on the pain scale. Patient denies any loss of consciousness or head trauma. Patient denies chest pain, abdominal pain, headache, neck pain, nausea, vomiting. Patient has had previous cervical spinal surgery, left chronic shoulder pain, and ongoing rectal prolapse. HPI is limited by patient's dementia. daughter in ROOM IS DPOA , discussed, reviewed 10 min 02/04/2020 No acute events overnight. Patient's pain is controlled. Patient seen and examined bedside. Patient's chart, labs, images were reviewed and discussed with RN Vitals/I&O Vitals/I&O: Vital Signs Date Time Temp Pulse Resp B/P (MAP) Pulse Ox O2 Delivery O2 Flow Rate FiO2 02/04/20 13:36 Room Air 02/04/20 11:59 98.1 98 18 95/43 (60) 95 98.1 02/03/20 15:52 4 I & O 02/03/20 02/03/20 02/04/20 15:00 23:00 07:00 Intake Total 0 ml 700 ml 120 ml Output Total 1450 ml 175 ml 500 ml Balance -1450 ml 525 ml -380 ml Physical Exam Physical Exam: Constitutional: Patient appears frail, not distressed, responding to questions appropriately smiling HENT: Normocephalic, atraumatic, widespread excoriations on face and scalp Eyes: Pupils 3 mm bilaterally and reactive to light consensual and direct, EOMI, conjunctiva normal, no discharge Neck: Limited range of motion, no tender to palpation of midline C-spine or paraspinal musculature, cervical hardware palpable to palpation Lungs & Thorax: , no signs of respiratory distress Abdomen: Soft, no tenderness Skin: Warm, dry, no erythema, no rash Back: No tenderness to palpation of midline thoracic or lumbar spine Extremities: Right hip is tender to deep and superficial palpation, maximal tenderness approximately at right greater trochanteric area, right lower extremity range of motion is limited by pain, foot dorsiflexion and plantar flexion muscle strength 4 out of 5 bilaterally. Dorsalis pedis pulse +2 bilaterally. Right posterior tibial pulse nonpalpable. Neurologic: Alert, normal motor function, normal sensory function, evaluation of focal deficits limited by pain in the right hip Psychologic: Affect normal, memory impairment, short term impaired General: Alert, Cooperative HEENT: Atraumatic Lungs: Clear to auscultation Heart: RRR Breasts: Not examined Abdomen: Normal bowel sounds, Soft, No tenderness, No hepatosplenomegaly Rectal Exam: not examined PELVIC: Examination not indicated Extremities: No cyanosis, No edema Neuro: Normal speech General: Alert, Cooperative, Other (mild dementia) Abdomen: Soft Extremities: No cyanosis, Normal pulses, Other (There is tenderness of the right hip. There is pain with any attempted motion. The skin is intact without ecchymosis. The extremity is shortened and externally rotated. Light touch sensation is intact at the foot and toes. Capillary refill and pulses are intact without evidence of ischemia. Slight dorsiflexion and plantarflexion are possible without evidence of sciatic nerve injury.) Labs Labs: Laboratory Tests Test 02/04/20 06:30 White Blood Count 9.4 x10^3/uL (4.0-11.0) Red Blood Count 2.65 x10^6/uL (3.50-5.40) Hemoglobin 8.3 g/dL (12.0-15.5) Hematocrit 23.9 % (36.0-47.0) Mean Corpuscular Volume 90 fL (79-100) Mean Corpuscular Hemoglobin 31 pg (25-35) Mean Corpuscular Hemoglobin Concent 35 g/dL (31-37) Red Cell Distribution Width 13.8 % (11.5-14.5) Platelet Count 291 x10^3/uL (140-400) Neutrophils (%) (Auto) 71 % (31-73) Lymphocytes (%) (Auto) 14 % (24-48) Monocytes (%) (Auto) 15 % (0-9) Eosinophils (%) (Auto) 0 % (0-3) Basophils (%) (Auto) 0 % (0-3) Neutrophils # (Auto) 6.6 x10^3/uL (1.8-7.7) Lymphocytes # (Auto) 1.3 x10^3/uL (1.0-4.8) Monocytes # (Auto) 1.4 x10^3/uL (0.0-1.1) Eosinophils # (Auto) 0.0 x10^3/uL (0.0-0.7) Basophils # (Auto) 0.0 x10^3/uL (0.0-0.2) Sodium Level 137 mmol/L (136-145) Potassium Level 4.2 mmol/L (3.5-5.1) Chloride Level 103 mmol/L (98-107) Carbon Dioxide Level 28 mmol/L (21-32) Anion Gap 6 (6-14) Blood Urea Nitrogen 11 mg/dL (7-20) Creatinine 0.9 mg/dL (0.6-1.0) Estimated GFR (Cockcroft-Gault) 60.7 Glucose Level 94 mg/dL (70-99) Calcium Level 8.2 mg/dL (8.5-10.1) Assessment and Plan Assessmemt and Plan Problems Medical Problems: (1) Closed right hip fracture Status: Acute Comment Review of Relevant I have reviewed the following items alyx (where applicable) has been applied. Medications: Current Medications Medications (Trade) Dose Ordered Sig/Rolanda Route PRN Reason Start Time Stop Time Status Last Admin Dose Admin Levofloxacin/ Dextrose 50 ml @ 50 mls/hr Q24H IV 02/03/20 16:00 02/03/20 21:06 Multivitamins (Thera M Plus) 1 tab DAILY PO 02/04/20 09:00 02/04/20 08:17 Vitamin D (Vitamin D3) 1,000 unit DAILY PO 02/04/20 09:00 02/04/20 08:15 Clindamycin Phosphate 50 ml @ 100 mls/hr Q6H IV 02/03/20 19:30 02/04/20 07:59 DC 02/04/20 08:15 Aspirin (Ecotrin) 325 mg BID PO 02/03/20 21:00 02/04/20 08:15 Oxycodone/ Acetaminophen (Percocet 5/325) 2 tab PRN Q4HRS PRN PO SEVERE PAIN 02/03/20 15:15 02/04/20 12:36 Justifications for Admission Other Justification MANJINDER CERON MD Feb 04, 2020 14:27
[2020-02-04] MEDS ORDERED: tiZANidine 4 MG TABLET. PO PRN (15:00)
[2020-02-04] MEDS ORDERED: METHADONE 5 MG PO SCH (15:30)
[2020-02-04 15:35] LABS: HEMATOCRIT 19.8 % (36.0-47.0); HEMOGLOBIN 6.7 g/dL (12.0-15.5)
[2020-02-04] MEDS: METHADONE 5 MG PO SCH ×2 (15:55→20:48)
[2020-02-04] MEDS: ENOXAPARIN 40 MG/0.4 ML SYRINGE. SQ SCH (15:55)
[2020-02-04] MEDS ORDERED: BISACODYL 10 MG SUPP.RECT. PR PRN (16:00)
[2020-02-04] MEDS: MORPHINE SULFATE 2 MG/ML VIAL. IVP PRN (18:42)
[2020-02-04] MEDS: traZODone 100 MG TABLET. PO SCH (20:47)
[2020-02-05] VITALS (11 sets, daily range): BP systolic 109–146; BP diastolic 50–80
[2020-02-05] MEDS: MORPHINE SULFATE 2 MG/ML VIAL. IVP PRN ×2 (01:27→17:25)
[2020-02-05] MEDS: IPRATRPIUM/ALBUTEROL 0.5/2.5MG 3 ML NEBU. NEB SCH ×4 (05:42→16:33)
[2020-02-05] MEDS: CHOLECALCIFEROL (VITAMIN D3) 1,000 UNIT TABLET PO SCH (08:20)
[2020-02-05] MEDS: MULTIVITAMIN with MINERAL TABLET. PO SCH (08:20)
[2020-02-05] MEDS: ASPIRIN ENTERIC COATED 325 MG TABLET.DR. PO SCH ×2 (08:20→23:06)
[2020-02-05] MEDS: SENNOSIDES 8.6 MG TABLET PO SCH ×2 (08:20→23:05)
[2020-02-05] MEDS: oxyCODONE/APAP 5/325 1 TAB TABLET PO PRN ×3 (08:20→17:21)
[2020-02-05] MEDS: METHADONE 5 MG PO SCH ×3 (08:20→21:00)
[2020-02-05] MEDS: POLYETHYLENE GLYCOL 3350 17 GM PACKET. PO SCH (08:21)
[2020-02-05] MEDS: GABAPENTIN 300 MG CAPSULE. PO SCH ×3 (08:21→23:06)
[2020-02-05] MEDS: DOCUSATE SODIUM 100 MG CAPSULE. PO SCH ×2 (08:21→23:06)
[2020-02-05 11:20] LABS: HEMATOCRIT 23.1 % (36.0-47.0); HEMOGLOBIN 7.8 g/dL (12.0-15.5); RED BLOOD COUNT 2.66 x10^6/uL (3.50-5.40); RED CELL DISTRIBUTION WIDTH 17.1 % (11.5-14.5); WHITE BLOOD COUNT 7.3 x10^3/uL (4.0-11.0)
[2020-02-05] MEDS: IV NORMAL SALINE 1000ML BAG 1,000 ML IV SCH ×2 (13:09→22:54)
[2020-02-05] MEDS: ACETAMINOPHEN 325 MG TABLET. PO PRN ×2 (13:09→23:06)
[2020-02-05] MEDS: ENOXAPARIN 40 MG/0.4 ML SYRINGE. SQ SCH (16:08)
[2020-02-05] MEDS: LORazepam 0.5 MG TABLET PO PRN (17:21)
--- NOTE | 2020-02-05 18:20 | PDOC ---
[facility] [facility] PROGRESS NOTE Date of Service DOS: DATE: 02/05/20 TIME: 18:19 Chief Complaint Chief Complaint Assessment/Plan IMPRESSION: Mechanical fall acute Right hip intertrochanteric fracture is seen in mild varus angulation and mild proximal migration of the femoral shaft component relative to the neck component status post right hip treatment of intertrochanteric femoral fracture with intramedullary implant, with interlocking screws 02/03/2020 Osteoporosis Dementia Remote tobacco abuse history of emphysema on cxr emphysematous changes can have this radiographic appearance. A superimposed mild edema is not excluded given the mild interstitial prominence. normocytic anemia plan We will work with PT today to get out of bed to chair Pending 2 units PRBC repeat posttransfusion CBC 1 hour afterwards Appreciate Ortho recommendations duonebs qid DNR DVT PROPHYLAXIS, lovenox iv pain control prn Advance diet as tolerated Surrogate decision maker is the daughter History of Present Illness History of Present Illness Patient seen in ED with complaints of right hip pain after sustaining a fall. x ray c/w hip fx, mechanical fall Patient has a history of moderate to severe dementia and is accompanied by her daughter who is providing a collateral histor y. The patient states "she fell after chasing her cats out the door". Patient complains of a severe pain in the right hip described as a deep and rated at a 11 out of 10 on the pain scale. Patient denies any loss of consciousness or head trauma. Patient denies chest pain, abdominal pain, headache, neck pain, nausea, vomiting. Patient has had previous cervical spinal surgery, left chronic shoulder pain, and ongoing rectal prolapse. HPI is limited by patient's dementia. daughter in ROOM IS DPOA , discussed, reviewed 10 min 02/04/2020 No acute events overnight. Patient's pain is controlled. Patient seen and examined bedside. Patient's chart, labs, images were reviewed and discussed with RN 02/05/2020 No acute events overnight. Patient was found to have hemoglobin of 6.7 today. Will transfuse 2 units PRBCs. Patient's chart, labs, images were reviewed and discussed with RN Vitals/I&O Vitals/I&O: Vital Signs Date Time Temp Pulse Resp B/P (MAP) Pulse Ox O2 Delivery O2 Flow Rate FiO2 02/05/20 17:56 Room Air 02/05/20 16:33 96 02/05/20 15:59 98.7 92 18 116/64 (81) 98.7 I & O 02/04/20 02/04/20 02/05/20 15:00 23:00 07:00 Intake Total 60 ml 480 ml Output Total 650 ml 650 ml 1750 ml Balance -650 ml -590 ml -1270 ml Physical Exam Physical Exam: Constitutional: Patient appears frail, not distressed, responding to questions appropriately smiling HENT: Normocephalic, atraumatic, widespread excoriations on face and scalp Eyes: Pupils 3 mm bilaterally and reactive to light consensual and direct, EOMI, conjunctiva normal, no discharge Neck: Limited range of motion, no tender to palpation of midline C-spine or paraspinal musculature, cervical hardware palpable to palpation Lungs & Thorax: , no signs of respiratory distress Abdomen: Soft, no tenderness Skin: Warm, dry, no erythema, no rash Back: No tenderness to palpation of midline thoracic or lumbar spine Extremities: Right hip is tender to deep and superficial palpation, maximal tenderness approximately at right greater trochanteric area, right lower extremity range of motion is limited by pain, foot dorsiflexion and plantar flexion muscle strength 4 out of 5 bilaterally. Dorsalis pedis pulse +2 bilaterally. Right posterior tibial pulse nonpalpable. Neurologic: Alert, normal motor function, normal sensory function, evaluation of focal deficits limited by pain in the right hip Psychologic: Affect normal, memory impairment, short term impaired General: Alert, Cooperative HEENT: Atraumatic Lungs: Clear to auscultation Heart: RRR Breasts: Not examined Abdomen: Normal bowel sounds, Soft, No tenderness, No hepatosplenomegaly Rectal Exam: not examined PELVIC: Examination not indicated Extremities: No cyanosis, No edema Neuro: Normal speech General: Alert, Cooperative, Other (mild dementia) Abdomen: Soft Extremities: No cyanosis, Normal pulses, Other (There is tenderness of the right hip. There is pain with any attempted motion. The skin is intact without ecchymosis. The extremity is shortened and externally rotated. Light touch sensation is intact at the foot and toes. Capillary refill and pulses are intact without evidence of ischemia. Slight dorsiflexion and plantarflexion are possible without evidence of sciatic nerve injury.) Labs Labs: Laboratory Tests Test 02/05/20 11:00 White Blood Count 7.3 x10^3/uL (4.0-11.0) Red Blood Count 2.66 x10^6/uL (3.50-5.40) Hemoglobin 7.8 g/dL (12.0-15.5) Hematocrit 23.1 % (36.0-47.0) Mean Corpuscular Volume 87 fL (79-100) Mean Corpuscular Hemoglobin 30 pg (25-35) Mean Corpuscular Hemoglobin Concent 34 g/dL (31-37) Red Cell Distribution Width 17.1 % (11.5-14.5) Platelet Count 254 x10^3/uL (140-400) Assessment and Plan Assessmemt and Plan Problems Medical Problems: (1) Closed right hip fracture Status: Acute Comment Review of Relevant I have reviewed the following items alyx (where applicable) has been applied. Medications: Current Medications Medications (Trade) Dose Ordered Sig/Rolanda Route PRN Reason Start Time Stop Time Status Last Admin Dose Admin Levofloxacin (Levaquin) 250 mg Q24H PO 02/05/20 16:00 02/05/20 16:07 Justifications for Admission Other Justification MANJINDER CERON MD Feb 05, 2020 18:20
[2020-02-05] MEDS: traZODone 100 MG TABLET. PO SCH (23:06)
[2020-02-06 03:00] VITALS: BP 108/55
[2020-02-06 07:47] VITALS: BP 161/78
[2020-02-06] MEDS: POLYETHYLENE GLYCOL 3350 17 GM PACKET. PO SCH (08:27)
[2020-02-06] MEDS: DOCUSATE SODIUM 100 MG CAPSULE. PO SCH (08:28)
[2020-02-06] MEDS: ALPRAZolam 0.25 MG TABLET PO PRN (08:28)
[2020-02-06] MEDS: SENNOSIDES 8.6 MG TABLET PO SCH (08:28)
[2020-02-06] MEDS: ASPIRIN ENTERIC COATED 325 MG TABLET.DR. PO SCH (08:28)
[2020-02-06] MEDS: CHOLECALCIFEROL (VITAMIN D3) 1,000 UNIT TABLET PO SCH (08:28)
[2020-02-06] MEDS: GABAPENTIN 300 MG CAPSULE. PO SCH ×2 (08:29→14:22)
[2020-02-06] MEDS: oxyCODONE/APAP 5/325 1 TAB TABLET PO PRN (08:29)
[2020-02-06] MEDS: MULTIVITAMIN with MINERAL TABLET. PO SCH (08:29)
[2020-02-06] MEDS ORDERED: IPRATRPIUM/ALBUTEROL 0.5/2.5MG 3 ML NEBU. NEB SCH (09:00)
--- NOTE | 2020-02-06 09:02 | PDOC ---
[facility] PROGRESS NOTE Date of Service DOS: DATE: 02/06/20 TIME: 08:55 Chief Complaint Chief Complaint A/P: Mechanical fall Acute Right hip intertrochanteric fracture is seen in mild varus angulation and mild proximal migration of the femoral shaft component relative to the neck component status post right hip treatment of intertrochanteric femoral fracture with intramedullary implant, with interlocking screws 02/03/2020 Osteoporosis Dementia Remote tobacco abuse history of emphysema on cxr emphysematous changes can have this radiographic appearance. A superimposed mild edema is not excluded given the mild interstitial prominence. Acute anemia plan We will work with PT today to get out of bed to chair Pending 2 units PRBC repeat posttransfusion CBC 1 hour afterwards Appreciate Ortho recommendations duonebs qid DNR DVT PROPHYLAXIS, lovenox iv pain control prn Advance diet as tolerated Surrogate decision maker is the daughter History of Present Illness History of Present Illness Ms Agustin is a 75yo F w/ PMHx dementia, chronic pain, rectal prolapse who presented to ED with complaints of right hip pain after sustaining a fall. x ray c/w hip fx, mechanical fall. 02/02: right hip treatment of intertrochanteric femoral fracture with intramedullary implant, with interlocking screws 02/03: urine culture with multiple organisms 02/04: Hemoglobin of 6.7 s/p 2 units PRBCs to 7.8. Afebrile, no CP or cough. LE edema stable. Daughter states she is ready for rehab. Vitals/I&O Vitals/I&O: Vital Signs Date Time Temp Pulse Resp B/P (MAP) Pulse Ox O2 Delivery O2 Flow Rate FiO2 02/06/20 08:29 Room Air 02/06/20 08:04 97 02/06/20 07:47 98.8 81 20 161/78 (105) 98.8 I & O 02/05/20 02/05/20 02/06/20 15:00 23:00 07:00 Intake Total 400 ml 900 ml Output Total 1450 ml 2900 ml Balance 400 ml -550 ml -2900 ml Physical Exam Physical Exam: Constitutional: Patient appears frail, not distressed, responding to questions appropriately smiling HENT: Normocephalic, atraumatic, widespread excoriations on face and scalp Eyes: Pupils 3 mm bilaterally and reactive to light consensual and direct, EOMI, conjunctiva normal, no discharge Neck: Limited range of motion, no tender to palpation of midline C-spine or paraspinal musculature, cervical hardware palpable to palpation Lungs & Thorax: , no signs of respiratory distress Abdomen: Soft, no tenderness Skin: Warm, dry, no erythema, no rash Back: No tenderness to palpation of midline thoracic or lumbar spine Extremities: Right hip is tender to deep and superficial palpation, maximal tenderness approximately at right greater trochanteric area, right lower extremity range of motion is limited by pain, foot dorsiflexion and plantar flexion muscle strength 4 out of 5 bilaterally. Dorsalis pedis pulse +2 bilaterally. Right posterior tibial pulse nonpalpable. Neurologic: Alert, normal motor function, normal sensory function, evaluation of focal deficits limited by pain in the right hip Psychologic: Affect normal, memory impairment, short term impaired General: Alert, Cooperative HEENT: Atraumatic Lungs: Clear to auscultation Heart: RRR Breasts: Not examined Abdomen: Normal bowel sounds, Soft, No tenderness, No hepatosplenomegaly Rectal Exam: not examined PELVIC: Examination not indicated Extremities: No cyanosis, No edema Neuro: Normal speech General: Alert, Cooperative, Other (mild dementia) Abdomen: Soft Extremities: No cyanosis, Normal pulses, Other (There is tenderness of the right hip. There is pain with any attempted motion. The skin is intact without ecchymosis. The extremity is shortened and externally rotated. Light touch sensation is intact at the foot and toes. Capillary refill and pulses are intact without evidence of ischemia. Slight dorsiflexion and plantarflexion are possible without evidence of sciatic nerve injury.) Labs Labs: Laboratory Tests Test 02/05/20 11:00 White Blood Count 7.3 x10^3/uL (4.0-11.0) Red Blood Count 2.66 x10^6/uL (3.50-5.40) Hemoglobin 7.8 g/dL (12.0-15.5) Hematocrit 23.1 % (36.0-47.0) Mean Corpuscular Volume 87 fL (79-100) Mean Corpuscular Hemoglobin 30 pg (25-35) Mean Corpuscular Hemoglobin Concent 34 g/dL (31-37) Red Cell Distribution Width 17.1 % (11.5-14.5) Platelet Count 254 x10^3/uL (140-400) Assessment and Plan Assessmemt and Plan Problems Medical Problems: (1) Closed right hip fracture Status: Acute Comment Review of Relevant I have reviewed the following items alyx (where applicable) has been applied. Medications: Current Medications Medications (Trade) Dose Ordered Sig/Rolanda Route PRN Reason Start Time Stop Time Status Last Admin Dose Admin Levofloxacin (Levaquin) 250 mg Q24H PO 02/05/20 16:00 02/05/20 16:07 Albuterol/ Ipratropium (Duoneb) 3 ml BID NEB 02/06/20 09:00 02/06/20 08:03 Justifications for Admission Other Justification JACEY MIX MD Feb 06, 2020 09:02
[2020-02-06] MEDS ORDERED: ENOX40DI3 SQ (09:03)
[2020-02-06] MEDS ORDERED: CHOL10003 PO (09:03)
[2020-02-06] MEDS: METHADONE 5 MG PO SCH ×2 (09:03→14:23)
[2020-02-06] MEDS ORDERED: OXYC1TAB15 PO (09:03)
[2020-02-06] MEDS ORDERED: METH5TAB2 PO (09:03)
[2020-02-06] MEDS ORDERED: POLY17PO28 PO (09:03)
--- NOTE | 2020-02-06 10:51 | PDOC ---
ORTHO PROGRESS NOTES DATE: 02/06/20 TIME: 10:48 Subjective Patient up attempting to move with physical therapy and walker to the chair with complaint of significant pain. Post-op Day: 3 Procedure Treatment of right hip fracture with IM nail and screws. Vitals Vital Signs Date Time Temp Pulse Resp B/P (MAP) Pulse Ox O2 Delivery O2 Flow Rate FiO2 02/06/20 09:29 Room Air 02/06/20 08:04 97 02/06/20 07:47 98.8 81 20 161/78 (105) 98.8 Labs Laboratory Tests Test 02/04/20 14:40 02/05/20 11:00 Hemoglobin 6.7 g/dL (12.0-15.5) 7.8 g/dL (12.0-15.5) Hematocrit 19.8 % (36.0-47.0) 23.1 % (36.0-47.0) Mean Corpuscular Hemoglobin Concent 34 g/dL (31-37) 34 g/dL (31-37) White Blood Count 7.3 x10^3/uL (4.0-11.0) Red Blood Count 2.66 x10^6/uL (3.50-5.40) Mean Corpuscular Volume 87 fL (79-100) Mean Corpuscular Hemoglobin 30 pg (25-35) Red Cell Distribution Width 17.1 % (11.5-14.5) Platelet Count 254 x10^3/uL (140-400) Laboratory Tests Test 02/05/20 11:00 White Blood Count 7.3 x10^3/uL (4.0-11.0) Red Blood Count 2.66 x10^6/uL (3.50-5.40) Hemoglobin 7.8 g/dL (12.0-15.5) Hematocrit 23.1 % (36.0-47.0) Mean Corpuscular Volume 87 fL (79-100) Mean Corpuscular Hemoglobin 30 pg (25-35) Mean Corpuscular Hemoglobin Concent 34 g/dL (31-37) Red Cell Distribution Width 17.1 % (11.5-14.5) Platelet Count 254 x10^3/uL (140-400) Notes Awake and alert up with physical therapy Assessment and Plan Postop day #3 status post right hip fracture with treatment of IM nail and locking screws Motor and sensation intact distally in the right lower extremity. Dressing is dry and intact. Calf is soft and nontender. Daughter is refusing to allow the patient/her mother to go home without her. DAVE ELLIOTT APRN Feb 06, 2020 10:51
--- NOTE | 2020-02-06 11:07 | NUR ---
PRATIK following. Spoke with RN and reviewed chart. Pt on room air and oral medications. Pt COVID negative. PT/OT recommendation is for SNU. Spoke with pt and pt's dtr and they are requesting SNU referral to [facility]. Patient Choice of Vendor form completed. PRATIK phoned and faxed referral to Marvin at [facility], . PRATIK following. Addendum: 02/06/20 at 1544 by CHRISTINE CHRISTIE Pt accepted to [facility] per Marvin. [facility]ATIK phoned and faxed discharge orders. Pain medication script sent in packet. Packet of clinicals ready to be sent. RN to call report. Transportation coming at 1700 per Marvin. No further [facility]ATIK needs at this time.
[2020-02-06 11:36] VITALS: BP 123/73
--- NOTE | 2020-02-06 11:51 | SNU/HH DC ---
DISCHARGE ORDERS DISCHARGE INFORMATION: DISCHARGE DATE: Feb 06, 2020 FINAL DIAGNOSIS Problems Medical Problems: (1) Closed right hip fracture Status: Acute CONDITION ON DISCHARGE: Stable CODE STATUS: Code Status: DNR/DNI SNF: SNF STAY <30 DAYS: Yes POST DISCHARGE ORDERS: ACTIVITY ORDERS: Resume previous activity WEIGHT BEARING STATUS: As tolerated CHECKS AFTER DISCHARGE: CHECKS AFTER DISCHARGE: Check blood press - daily, Weigh Yourself Daily FOLLOW-UP: PHYSICIAN FOLLOW-UP: Dr. Romeo Martin LAB ORDERS FOR FOLLOW-UP: BMP, CBC weekly TREATMENT/EQUIPMENT ORDERS: ADAPTIVE EQUIPMENT NEEDED: Front wheeled walker Physical Therapy For: Evalulation/Treatment Occupational Therapy For: Evaluation/Treatment DISCHARGE MEDICATIONS: Home Meds Active Scripts Polyethylene Glycol 3350 (POLYETHYLENE GLYCOL 3350) 17 Gm Powd.pack, 17 GM PO PRN DAILY PRN for CONSTIPATION for 30 Days, #30 PKT Prov:JACEY MIX MD 02/06/20 Cholecalciferol (Vitamin D3) (Vitamin D3) 25 Mcg Tablet, 1000 UNIT PO DAILY for Vitamin d insufficiency for 30 Days, #30 TAB Prov:JACEY MIX MD 02/06/20 Oxycodone/Apap 5-325 (PERCOCET 5-325 MG TABLET ) 1 Each Tablet, 1 TAB PO PRN Q6HRS PRN for MODERATE PAIN for 6 Days, #24 TAB Prov:JACEY MIX MD 02/06/20 Enoxaparin Sodium (ENOXAPARIN SODIUM) 40 Mg/0.4 Ml Disp.syrin, 40 MG SQ Q24H for DVT prophylaxis for 30 Days, #30 DIS.SYR Prov:JACEY MIX MD 02/06/20 Methadone Hcl (METHADONE HCL) 5 Mg Tablet, 1 TAB PO TID for pain for 30 Days, #90 TAB Prov:JACEY MIX MD 02/06/20 Polyethylene Glycol 3350 (MIRALAX) 119 Gm Powder, 17 GM PO DAILY, #527 GM Prov:MARIELOS FERMIN DO 04/22/18 Sennosides (SENNA) 8.6 Mg Tablet, 8.6 MG PO BID for constipation, #60 TAB 1 Refill Prov:MARIELOS FERMIN DO 04/22/18 Docusate Sodium (DOCUSATE SODIUM) 250 Mg Capsule, 250 MG PO BID, #60 CAP 1 Refill Prov:MARIELOS FERMIN DO 04/22/18 Olanzapine (ZYPREXA ZYDIS) 5 Mg Tab.rapdis, 5 MG PO UD, #30 TAB Give 1 or 2 dissolving tabs daily as needed for agitation. Don't exceed more than 4 tablets total per 24 hours. Prov:MARIELOS FERMIN DO 04/22/18 Reported Medications Albuterol Sulfate (PROAIR HFA INHALER) 8.5 Gm Hfa.aer.ad, 1 PUFF INH PRN Q6HRS PRN for SHORTNESS OF BREATH, INHALER 0 Refills 02/02/20 Multivitamin (MULTI VITAMIN DAILY) 1 Each Tablet, 1 EACH PO DAILY for vitamin, TAB 02/02/20 Trazodone Hcl (TRAZODONE HCL) 100 Mg Tablet, 1 TAB PO QHS for antidepressant, #30 TAB 1 Refill 02/02/20 Tizanidine Hcl (TIZANIDINE HCL) 4 Mg Tablet, 4 MG PO Q6HRS PRN for MUSCLE SPASMS, TAB 02/02/20 Gabapentin (GABAPENTIN) 600 Mg Tablet, 600 MG PO TID for NEUROGENIC PAIN, TAB 02/02/20 Discontinued Reported Medications Hydrocodone Bit/Acetaminophen (HYDROCODONE-APAP 10-325 ) 1 Tab Tablet, 1 TAB PO TID for pain, TAB 0 Refills 02/02/20 Discontinued Scripts Alprazolam (ALPRAZOLAM) 0.25 Mg Tablet, 0.25 MG PO PRN Q6HRS PRN for ANXIETY / AGITATION, #20 TAB 0 Refills Prov:BRENTON RENO DO 06/07/18 JACEY MXI MD Feb 06, 2020 11:51
--- NOTE | 2020-02-06 11:52 | PDOC3 ---
Discharge Summary Visit Information Date of Admission: Feb 02, 2020 Date of Discharge: Feb 06, 2020 Admitting Diagnosis: Closed right hip fracture Final Diagnosis Problems Medical Problems: (1) Closed right hip fracture Status: Acute Brief Hospital Course Allergies Allergies Coded Allergies Type Severity Reaction Last Updated Verified Penicillins Allergy Intermediate 04/22/18 Yes Vital Signs Vital Signs Date Time Temp Pulse Resp B/P (MAP) Pulse Ox O2 Delivery O2 Flow Rate FiO2 02/06/20 11:36 98.3 94 20 123/73 (90) 96 Room Air 98.3 Lab Results Laboratory Tests Test 02/04/20 14:40 02/05/20 11:00 Hemoglobin 6.7 g/dL (12.0-15.5) 7.8 g/dL (12.0-15.5) Hematocrit 19.8 % (36.0-47.0) 23.1 % (36.0-47.0) Mean Corpuscular Hemoglobin Concent 34 g/dL (31-37) 34 g/dL (31-37) White Blood Count 7.3 x10^3/uL (4.0-11.0) Red Blood Count 2.66 x10^6/uL (3.50-5.40) Mean Corpuscular Volume 87 fL (79-100) Mean Corpuscular Hemoglobin 30 pg (25-35) Red Cell Distribution Width 17.1 % (11.5-14.5) Platelet Count 254 x10^3/uL (140-400) Brief Hospital Course Ms Agustin is a 75yo F w/ PMHx dementia, chronic pain, rectal prolapse who presented to ED with complaints of right hip pain after sustaining a fall. x ray c/w hip fx, mechanical fall. 02/02: right hip treatment of intertrochanteric femoral fracture with intramedullary implant, with interlocking screws 02/03: urine culture with multiple organisms 02/04: Hemoglobin of 6.7 s/p 2 units PRBCs to 7.8. Afebrile, no CP or cough. LE edema stable. Daughter states she is ready for rehab. Consults: Ortho Problem list: Mechanical fall Acute Right hip intertrochanteric fracture is seen in mild varus angulation and mild proximal migration of the femoral shaft component relative to the neck component status post right hip treatment of intertrochanteric femoral fracture with intramedullary implant, with interlocking screws 02/03/2020 [facility] - vasomotor nephropathy with Cr 1.2-->0.9 Osteoporosis Dementia Remote tobacco abuse history of emphysema on cxr emphysematous changes can have this radiographic a ppearance. A superimposed mild edema is not excluded given the mild interstitial prominence. Acute anemia - improved after 2u PRBC Greater than 30 minutes spent on d/c to SNF Discharge Information Condition at Discharge: Improved Follow Up: Weeks (1) Disposition/Orders: D/C to Another Facility Scheduled Cholecalciferol (Vitamin D3) (Vitamin D3) 25 Mcg Tablet, 1,000 UNIT PO DAILY for Vitamin d insufficiency for 30 Days, #30 Prescribed by: JACEY MIX MD on 02/06/2003 Docusate Sodium (Docusate Sodium) 250 Mg Capsule, 250 MG PO BID, #60 Ref 1 Prescribed by: MARIELOS FERMIN D.O. on 04/22/18 172 Last Action: Converted on 02/02/201228 by ELISABETH VARGAS MD Enoxaparin Sodium (Enoxaparin Sodium) 40 Mg/0.4 Ml Disp.syrin, 40 MG SQ Q24H for DVT prophylaxis for 30 Days, #30 Prescribed by: JACEY MIX MD on 02/06/20 0903 Gabapentin (Gabapentin) 600 Mg Tablet, 600 MG PO TID for NEUROGENIC PAIN, (Rep orted) Entered as Reported by: ELKIN DE LA ROSA on 02/02/20 171 Last Action: Converted on 02/02/201946 by MANJINDER CERON MD Methadone Hcl (Methadone Hcl) 5 Mg Tablet, 1 TAB PO TID for pain for 30 Days, #90 Prescribed by: JACEY MIX MD on 02/06/20 0903 Multivitamin (Multi Vitamin Daily) 1 Each Tablet, 1 EACH PO DAILY for vitamin, (Reported) Entered as Reported by: ELKIN DE LA ROSA on 02/02/201737 Last Action: New Order on 02/02/201737 by ELKIN DE LA ROSA Olanzapine (Zyprexa Zydis) 5 Mg Tab.rapdis, 5 MG PO UD, #30 Give 1 or 2 dissolving tabs daily as needed for agitation. Don't exceed more than 4 tablets total per 24 hours. Prescribed by: MARIELOS FERMIN D.O. on 04/22/181720 Last Action: Continued on 02/02/201228 by ELISABETH VARGAS MD Polyethylene Glycol 3350 (Miralax) 119 Gm Powder, 17 GM PO DAILY, #527 Prescribed by: MARIELOS FERMIN D.O. on 04/22/181720 Last Action: Continued on 02/02/201228 by ELISABETH VARGAS MD Sennosides (Senna) 8.6 Mg Tablet, 8.6 MG PO BID for constipation, #60 Ref 1 Prescribed by: MARIELOS FERMIN D.O. on 04/22/181720 Last Action: Continued on 02/02/201228 by ELISABETH VARGAS MD Trazodone Hcl (Trazodone Hcl) 100 Mg Tablet, 1 TAB PO QHS for antidepressant, #30 Ref 1 (Reported) Entered as Reported by: ELKIN DE LA ROSA on 02/02/201737 Last Action: Continued on 02/02/201946 by MANJINDER CERON MD Scheduled PRN Albuterol Sulfate (Proair Hfa Inhaler) 8.5 Gm Hfa.aer.ad, 1 PUFF INH PRN Q6HRS PRN for SHORTNESS OF BREATH, Ref 0 (Reported) Entered as Reported by: ELKIN DE LA ROSA on 02/02/201737 Last Action: New Order on 02/02/201737 by ELKIN DE LA ROSA Oxycodone/Apap 5-325 (Percocet 5-325 Mg Tablet ) 1 Each Tablet, 1 TAB PO PRN Q6HRS PRN for MODERATE PAIN for 6 Days, #24 Prescribed by: JACEY MIX MD on 02/06/20 0903 Polyethylene Glycol 3350 (Polyethylene Glycol 3350) 17 Gm Powd.pack, 17 GM PO P RN DAILY PRN for CONSTIPATION for 30 Days, #30 Prescribed by: JACEY MIX MD on 02/06/20 0903 Tizanidine Hcl (Tizanidine Hcl) 4 Mg Tablet, 4 MG PO Q6HRS PRN for MUSCLE SPASMS, (Reported) Entered as Reported by: ELKIN DE LA ROSA on 02/02/201737 Last Action: Continued on 02/04/201446 by MANJINDER CERON MD Discontinued Medications Alprazolam (Alprazolam) 0.25 Mg Tablet, 0.25 MG PO PRN Q6HRS PRN for ANXIETY / AGITATION, #20 Ref 0 Prescribed by: BRENTON RENO D.O. on 06/07/18 1243 Last Action: Continued on 02/02/20 1229 by ELISABETH VARGAS MD Hydrocodone Bit/Acetaminophen (Hydrocodone-Apap 10-325 ) 1 Tab Tablet, 1 TAB PO TID for pain, Ref 0 (Reported) Entered as Reported by: ELKIN DE LA ROSA on 02/02/201737 Last Action: HELD on 02/02/201946 by MANJINDER CERON MD Justicifation of Admission Dx: Justifications for Admission: Justification of Admission Dx: Yes JACEY MIX MD Feb 06, 2020 11:52
[2020-02-06] MEDS: IV NORMAL SALINE 1000ML BAG 1,000 ML IV SCH (12:14)
[2020-02-06] MEDS: MORPHINE SULFATE 2 MG/ML VIAL. IVP PRN (12:38)
[2020-02-06] MEDS: LORazepam 0.5 MG TABLET PO PRN (14:22)
[2020-02-06 15:00] VITALS: BP 132/64
[2020-02-06] MEDS ORDERED: PROCHLORPERAZINE 10 MG/2 ML VIAL. IV ONE (15:00)
[2020-02-06] MEDS: ENOXAPARIN 40 MG/0.4 ML SYRINGE. SQ SCH (16:00)
== END 2020-02-06 17:10 | DRG 480 ==
LOC: ER 08:08 → ED HOLD 10:00 → 4 SOUTHEST 11:45 → 5 NORTH 02-03 16:18
PROVIDERS: ADMIT Family Medicine; ATTEND Family Medicine
PROC: 0QS636Z Reposition Right Upper Femur with Intramedullary Internal Fixation Device, Percutaneous Approach (ICD-10-PCS; principal; 2020-02-03 14:35)
PROC: 30233N1 Transfusion of Nonautologous Red Blood Cells into Peripheral Vein, Percutaneous Approach (ICD-10-PCS; 2020-02-04)
DX: S72.141A Displaced intertrochanteric fracture of right femur, initial encounter for closed fracture (principal); N17.0 Acute kidney failure with tubular necrosis; D64.9 Anemia, unspecified; F03.90 Unspecified dementia, unspecified severity, without behavioral disturbance, psychotic disturbance, mood disturbance, and anxiety; J43.9 Emphysema, unspecified; M47.816 Spondylosis without myelopathy or radiculopathy, lumbar region; G89.29 Other chronic pain; K62.3 Rectal prolapse; M19.90 Unspecified osteoarthritis, unspecified site; M25.512 Pain in left shoulder; R29.6 Repeated falls; R26.9 Unspecified abnormalities of gait and mobility; W18.30XA Fall on same level, unspecified, initial encounter; Z20.828 Contact with and (suspected) exposure to other viral communicable diseases; M81.0 Age-related osteoporosis without current pathological fracture; Z87.891 Personal history of nicotine dependence; Z82.5 Family history of asthma and other chronic lower respiratory diseases; Z82.49 Family history of ischemic heart disease and other diseases of the circulatory system; Z98.1 Arthrodesis status; Z88.5 Allergy status to narcotic agent; Z88.0 Allergy status to penicillin; Y93.89 Activity, other specified; Y92.89 Other specified places as the place of occurrence of the external cause; Y99.8 Other external cause status
CPT/HCPCS: 36415; 51702; 70450; 71045; 72125; 73502; 76000; 80048; 80053; 81001; 82553; 83735; 84484; 85014; 85018; 85025; 85027; 85610; 85730; 86850; 86900; 86901; 86920; 87086; 87426; 93005; 94640; 94760; 96361; 96374; 96375; 96376; A7015; C1713; C1887; J0171; J0780; J1100; J1170; J1650; J1956; J2270; J2274; J2405; J2704; J2795; J3010; J3490; J7030; J7120; P9016; 97110-GP; 97116-GP; 97530-GP; 99285-25; G0378; U0003-CS